=== PATIENT | female | born 1995 | race Caucasian/White ===

== ENCOUNTER 2016-11-04 13:02 | Inpatient (IN) | payer BC, OTHER ==
[2016-11-04] MEDS ORDERED: ceFAZolin 2 GM in SODIUM CHLORIDE 0.9% 100 ML IVPB ONE (15:45)
[2016-11-04] MEDS ORDERED: LACTATED RINGERS 1,000 ML IV ONE (15:45)
[2016-11-04] MEDS ORDERED: CARBOPROST TROMETHAMINE 250 MCG/ML 1 ML AMP IM PRN (15:45)
[2016-11-04] MEDS ORDERED: CITRIC ACID-SODIUM CITRATE 15 ML CUP PO ONE (15:45)
[2016-11-04 16:01] LABS: Basophils % (A) 0 %; CH 32.4; CHCM 33.7; Eosinophils # (A) 0.1 k/uL (0-0.7); Eosinophils % (A) 1 %; HCT 39.8 % (34.0-46.0); HDW 3.29; HGB 12.7 gm/dL (11.4-16.0); Luc % (Auto) 1; Lymphocytes # (A) 1.1 k/uL (1.0-4.8); Lymphocytes % (A) 12 %; MCV 96.9 fL (80.0-100.0); Mean Platelet Volume 9.7; Monocytes # (A) 0.4 k/uL (0-1.0); Monocytes % (A) 4 %; Neutrophils # (A) 7.9 k/uL (1.3-7.7); Neutrophils % (A) 81 %; RBC 4.11 m/uL (3.80-5.40); RDW 13.2 % (11.5-15.5); WBC 9.8 k/uL (3.8-10.6); WBC (Perox) 10.34
[2016-11-04] MEDS ORDERED: diphenhydrAMINE 50 MG/ML 1 ML VIAL ONE (16:29)
[2016-11-04] MEDS ORDERED: OXYTOCIN 10 UNIT/ML 1 ML VIAL IM ONE (16:29)
[2016-11-04] MEDS ORDERED: KETOROLAC 30 MG/ML 1 ML VIAL ONE (16:29)
[2016-11-04] MEDS ORDERED: ONDANSETRON 4 MG/2 ML VIAL ONE (16:29)
[2016-11-04] MEDS ORDERED: NALBUPHINE 10 MG/ML AMPUL ONE (16:29)
[2016-11-04] MEDS ORDERED: DEXAMETHASONE SOD PHOS (MDV) 100 MG/10 ML VIAL ONE (16:29)
[2016-11-04] MEDS ORDERED: MORPHINE SULFATE (PF) 0.3 MG/0.3 ML SYR ONE (16:29)
[2016-11-04] MEDS ORDERED: ONDANSETRON 4 MG/2 ML VIAL IVP PRN (17:03)
[2016-11-04] MEDS ORDERED: MORPHINE SULFATE 4 MG/ML SYRINGE IVP PRN (17:03)
[2016-11-04] MEDS ORDERED: diphenhydrAMINE 50 MG/ML 1 ML VIAL IVP PRN ×2 (17:03→17:21)
[2016-11-04] MEDS ORDERED: NALOXONE 0.4 MG/ML 1 ML VIAL IV PRN (17:03)
[2016-11-04 17:21] VITALS: BMI 85.1
[2016-11-04] MEDS ORDERED: SIMETHICONE 80 MG CHEWABLE PO PRN (17:21)
[2016-11-04] MEDS ORDERED: diphenhydrAMINE 25 MG CAP PO PRN (17:21)
[2016-11-04] MEDS ORDERED: diphenhydrAMINE 50 MG CAP PO PRN (17:21)
[2016-11-04] MEDS ORDERED: LANOLIN CREAM 5 GM TUBE TOPICAL PRN (17:21)
[2016-11-04] MEDS ORDERED: ZOLPIDEM 5 MG TAB PO PRN (17:21)
[2016-11-04] MEDS ORDERED: Acetaminophen-Codeine 300-30mg TAB PO PRN (17:21)
[2016-11-04] MEDS ORDERED: METOCLOPRAMIDE 5 MG/ML 2 ML VIAL IVP PRN (17:21)
[2016-11-04] MEDS ORDERED: ACETAMINOPHEN TAB 325 MG TAB PO PRN (17:21)
[2016-11-04] MEDS ORDERED: INFLUENZA VACCINE (3YR+) 60 MCG/0.5 ML SYRINGE IM ONE (17:24)
[2016-11-04] MEDS ORDERED: DIPH,PERTUS(ACELL)TETVAC-LF 0.5 ML VIAL IM ONE (17:24)
--- NOTE | 2016-11-04 17:33 | P.HPOB ---
History of Present Illness H&P Date: 11/04/16 Chief Complaint: Contractions. This patient is a pleasant 21-year-old 2 para 1 female estimated date of confinement 11/19/2016 estimated gestational age 37-6/7 weeks gestation who is admitted to labor and delivery in active labor. Patient is scheduled for repeat section and tubal ligation. has been uncomplicated with the exception of large for gestational age. Review of Systems Constitutional: Denies chills, Denies fever Ears, nose, mouth and throat: Denies headache, Denies sore throat Cardiovascular: Denies chest pain, Denies shortness of breath Respiratory: Denies cough Gastrointestinal: Reports heartburn Genitourinary: Reports Menstruation: Reports amenorrhea Musculoskeletal: Denies myalgias Integumentary: Denies pruritus, Denies rash Neurological: Denies numbness, Denies weakness Psychiatric: Denies anxiety, Denies depression Endocrine: Denies fatigue, Denies weight change Past Medical History Past Medical History: Asthma History of Any Multi-Drug Resistant Organisms: None Reported Past Surgical History: Section Past Anesthesia/Blood Transfusion Reactions: No Reported Reaction Past Psychological History: No Psychological Hx Reported Smoking Status: Former smoker Past Alcohol Use History: None Reported Additional Past Alcohol Use History / Comment(s): smoked <1year 2 packs/wk quit when found out she was Past Drug Use History: None Reported - Past Family History Mother Family Medical History: No Reported History Medications and Allergies Home Medications Medication Instructions Recorded Confirmed Type Vit No.124/Iron/FA 1 tab PO DAILY 01/28/15 11/04/16 History [ Vitamin Tablet] Beclomethasone Dip 80 Mcg/Puff 2 puff INHALATION DAILY 09/01/16 11/04/16 History [Qvar] Montelukast Sodium [Montelukast 1 tab PO DAILY 09/01/16 11/04/16 History Sodium] Allergies Allergy/AdvReac Type Severity Reaction Status Date / Time No Known Allergies Allergy Verified 11/04/16 13:18 Exam - Vital Signs Vital signs: Intake and Output 11/04/16 11/04/16 11/04/16 06:59 14:59 22:59 Other: Weight 95.708 kg 211 kg Patient Weight 11/05/16 06:59 Weight 211 kg - OBG Physical Exam Abdomen: bowel sounds normal, no diffuse tenderness, no bruit present, no guarding noted, no hepatomegaly, no splenomegaly, no mass Vulva: both: normal Vagina: normal moisture, no discharge Cervix: Cervix is 2 cm dilated. Uterus: enlarged (Fundal height is size greater than dates.) Results blood work shows she is O positive, rubella immune, RPR nonreactive, hepatitis B-, HIV nonreactive, Glucola was normal, group B strep was negative, ultrasounds have been normal with the exception of large for gestational age. Result Diagrams: 11/04/16 15:55 Abnormal Lab Results - Last 24 Hours (Table) 11/04/16 Range/Units 15:55 Neutrophils # 7.9 H (1.3-7.7) k/uL Assessment and Plan (1) Third trimester Narrative/Plan: This is a pleasant 21-year-old 2 para 1 female 37-6/7 weeks' gestation in active labor with previous section and also requesting tubal ligation. Plan is repeat low transverse section and bilateral partial salpingectomy. Patient does understand a tubal ligation is permanent, however there is a failure rate of approximately 20-25 per thousand procedures done. Patient also understands her alternatives to this type of surgery. Patient her stands risks of infection, bleeding, possible injury bowel, bladder, vessels, and other organs. She also understands risk of DVT and pulmonary embolism. All the patient's questions are answered written consent is obtained. Status: Acute (2) Previous delivery affecting Status: Acute (3) Family planning Status: Acute
--- NOTE | 2016-11-04 17:40 | P.OP ---
Date of Procedure: 11/04/16 Preoperative Diagnosis: #1: 37-6/7 week . #2: Previous section desires repeat. #3: Multi parity desires permanent sterilization. #4: Active labor Postoperative Diagnosis: Same Procedure(s) Performed: #1: Repeat low transverse section. #2: Bilateral partial salpingectomy. Implants: Anesthesia: spinal Surgeon: Jonathan Kendrick Contracting Officer #1: Samantha Zepeda Estimated Blood Loss (ml): 800 Pathology: other (Placenta and bilateral fallopian tube segments.) Condition: stable Disposition: floor Indications for Procedure: Please see dictated H&P for intimate details of this patient's admission. Brief summary is a pleasant 21-year-old 2 para 1 female 37-6/7 weeks gestation who is in active labor. Patient has had a previous section and requests repeat. Patient also requests permanent sterilization. Patient and I have discussed the surgery and sterilization in the office previously. She understands a tubal ligation is have a failure rate but in general is considered permanent. She understands risk of surgery including risks of infection, bleeding, possible injury bowel, bladder, vessels, and/or other organs. Operative Findings: This is a vigorous viable male Apgars are 8 and 9 delivery time is 1643 hrs. has spontaneous respirations and good cry and grossly appears normal. Uterus tubes and ovaries appear normal for term gestation. Description of Procedure: This patient has a Caldwell catheter placed to straight drain. She subsequently taken to the operating room where she sat up and spinal anesthetic is administered without incident. With an adequate level of anesthesia she has abdominal prep and drape. Scalpels and taken the previous Pfannenstiel incision is excised. Second scalpel is taken down the fascia and the fascia scored with a knife. Fascial incision extended bilaterally using the Hinson scissors. Fascia is then dissected off the rectus muscles. Rectus muscles are the peritoneum identified and entered sharply. Peritoneal incision extended superior and inferior without difficulty. Bladder blade is then placed. Bladder peritoneum was then taken off the lower uterine segment sharply. Scalpels and taken a low transverse uterine incision is then made. Using a hemostat I into the uterine cavity bluntly and there is loss of clear fluid. This incision extended bluntly. Infant's head is then guided through the incision with fundal pressure delivered. Mouth and nares are bulb suctioned there is no evidence of a nuchal cord. Have delivery anterior posterior shoulder and rest this 's body. The vigorous viable male Apgars 8 and 9 delivery time is 1643 hrs. After delivery of the the umbilical cord is doubly clamped and cut and appears to be trivascular. Placenta is then manually extracted intact. Uterus is then externalized and uterine incision demarcated with Francisco clamps. Uterine incision then closed using 0 Vicryl running locked fashion in 2 layers. The bladder peritoneum was then reapproximated using a 3-0 Vicryl. Excess fluid is removed from the abdomen and pelvis. Then turned my attention a left fallopian tube approximately 4 cm from its cornual insertion a small window is made to the mesial salpinx with Bovie cautery. Using a 2-0 silk I doubly ligate a piece of this tube and approximately 2 cm segment was excised and handed off to pathology. Cauterization is done of the tubal ends. With this completed I then turned my attention of the right fallopian tube similar technique. Pulse tubes appear to be hemostatic. Excess fluid is removed. Uterus placed back into the abdomen. Parietal peritoneum was then closed using 0 Vicryl running fashion. Rectus muscles reapproximated in 0 Vicryl interrupted fashion. Fascia is then closed using 0 PDS in a running fashion. Fascial incision is intact and hemostatic. Subcutaneous tissues and closed using a 3-0 Vicryl. Skin is and closed using george. At this point sterile dressing was then applied. All counts are correct 3. There are no complications. and mother are taken to the birthing suite in satisfactory condition.
[2016-11-04] MEDS: OXYTOCIN 30 UNITS/500 ML NS 30 UNIT in SALINE 1 500ML.BAG IV SCH (19:56)
[2016-11-04] MEDS: LACTATED RINGERS 1,000 ML IV SCH ×3 (19:56→21:16)
[2016-11-04] MEDS: SENNOSIDES-DOCUSATE SODIUM 1 EACH TAB PO SCH (19:57)
[2016-11-04] MEDS: KETOROLAC 30 MG/ML 1 ML VIAL IVP PRN (23:37)
[2016-11-05] MEDS: LACTATED RINGERS 1,000 ML IV SCH (00:28)
[2016-11-05] MEDS: OXYTOCIN 30 UNITS/500 ML NS 30 UNIT in SALINE 1 500ML.BAG IV SCH (00:28)
--- NOTE | 2016-11-05 06:33 | P.PNOBGPC ---
Subjective - Subjective Patient reports: Reports appetite normal, Reports voiding normally, Reports pain well controlled, Reports ambulating normally : doing well Objective - Vital Signs Latest vital signs: Vital Signs Temp Pulse Resp BP Pulse Ox 11/05/16 03:30 98.4 F 79 14 118/54 95 11/04/16 23:30 98.5 F 76 16 122/68 95 11/04/16 19:22 97.0 F L 66 16 101/56 11/04/16 18:42 96.6 F L 67 18 126/65 11/04/16 18:10 82 18 110/54 11/04/16 17:55 96.3 F L 75 18 113/52 11/04/16 17:40 96.4 F L 90 18 113/57 11/04/16 17:25 96.5 F L 76 18 102/53 11/04/16 17:10 97.7 F 87 18 93/51 95 Intake and Output 11/04/16 11/04/16 11/05/16 14:59 22:59 06:59 Intake Total 1000 Output Total 350 1000 Balance 650 -1000 Intake: IV 1000 Lactated Ringers 1,000 ml 1000 @ 125 mls/hr IV .Q8H [facility] Rx#:[id number] Output: Urine 350 1000 Other: Voiding Method Indwelling Catheter Indwelling Catheter Weight 95.708 kg 211 kg Patient Weight 11/05/16 06:59 Weight 211 kg - Exam Lungs: bilateral: normal Chest: Normal S1, Normal S2 Extremities: Present: normal Abdomen: Present: normal appearance, soft. Absent: distention, tenderness Incision: Present: normal, dry, intact Uterus: Present: normal, firm - Labs Labs: Abnormal Lab Results - Last 24 Hours (Table) 11/04/16 Range/Units 15:55 Neutrophils # 7.9 H (1.3-7.7) k/uL Assessment and Plan (1) Third trimester Narrative/Plan: Postoperative day #1. Patient is resting without complaints. Vital signs are stable she is afebrile. Uterus is firm nontender and her incision is intact and dry. Plan today is to remove her catheter, check a CBC, advance her diet, and allow her to shower. We will continue routine postoperative care. Current Visit: Yes Status: Acute Code(s): Z33.1 - STATE, INCIDENTAL SNOMED Code(s): 70063061 (2) Previous delivery affecting Current Visit: Yes Status: Acute Code(s): O34.219 - MATERNAL CARE FOR UNSP TYPE SCAR FROM PREVIOUS DEL SNOMED Code(s): 018980966 (3) Family planning Current Visit: Yes Status: Acute Code(s): Z30.09 - ENCOUNTER FOR OTH GENERAL CNSL AND ADVICE ON CONTRACEPTION SNOMED Code(s): 13504547
[2016-11-05 07:48] LABS: Basophils % (A) 0 %; CH 32.1; CHCM 34.1; Eosinophils % (A) 0 %; HCT 31.6 % (34.0-46.0); HDW 3.12; HGB 10.6 gm/dL (11.4-16.0); Luc # (Auto) 0.19; Luc % (Auto) 2; Lymphocytes # (A) 1.1 k/uL (1.0-4.8); Lymphocytes % (A) 8 %; MCH 31.7 pg (25.0-35.0); MCHC 33.5 g/dL (31.0-37.0); MCV 94.7 fL (80.0-100.0); Monocytes # (A) 0.7 k/uL (0-1.0); Monocytes % (A) 6 %; Neutrophils # (A) 10.6 k/uL (1.3-7.7); Neutrophils % (A) 84 %; RBC 3.34 m/uL (3.80-5.40); RDW 12.9 % (11.5-15.5); WBC 12.5 k/uL (3.8-10.6); WBC (Perox) 14.18
[2016-11-05] MEDS: KETOROLAC 30 MG/ML 1 ML VIAL IVP PRN ×2 (07:48→13:52)
[2016-11-05] MEDS: SENNOSIDES-DOCUSATE SODIUM 1 EACH TAB PO SCH ×2 (07:50→19:49)
--- NOTE | 2016-11-05 08:19 | P.PN ---
Progress Note - Text Postoperative day 1 status post section under spinal anesthesia, and intrathecal morphine given for postoperative analgesia, patient doing well, there is no anesthesia related complications, further management as per her primary team
[2016-11-05] MEDS: Acetaminophen-Codeine 300-30mg TAB PO PRN (19:00)
[2016-11-05] MEDS: IBUPROFEN 600 MG TAB PO PRN (22:33)
[2016-11-06] MEDS: LACTATED RINGERS 1,000 ML IV SCH ×3 (05:11→05:13)
[2016-11-06] MEDS: OXYTOCIN 30 UNITS/500 ML NS 30 UNIT in SALINE 1 500ML.BAG IV SCH ×2 (05:12→05:13)
[2016-11-06] MEDS: Acetaminophen-Codeine 300-30mg TAB PO PRN ×3 (05:31→23:35)
--- NOTE | 2016-11-06 07:10 | P.PNOBGPC ---
Subjective - Subjective Patient reports: Reports appetite normal, Reports voiding normally, Reports pain well controlled, Reports ambulating normally : doing well Objective - Vital Signs Latest vital signs: Vital Signs Temp Pulse Resp BP 11/06/16 00:00 97.8 F 78 16 114/74 11/05/16 20:00 97.4 F L 82 16 117/64 11/05/16 16:00 98.3 F 76 16 108/59 11/05/16 08:30 98.1 F 65 16 113/60 Intake and Output 11/05/16 11/06/16 11/06/16 22:59 06:59 14:59 Output Total 400 Balance -400 Output: Urine 400 Other: # Voids 2 2 - Exam Lungs: bilateral: normal Chest: Normal S1, Normal S2 Extremities: Present: normal Abdomen: Present: normal appearance, soft. Absent: distention, tenderness Incision: Present: normal, dry, intact Uterus: Present: normal, firm - Labs Labs: Abnormal Lab Results - Last 24 Hours (Table) 11/05/16 Range/Units 06:51 WBC 12.5 H (3.8-10.6) k/uL RBC 3.34 L (3.80-5.40) m/uL Hgb 10.6 L (11.4-16.0) gm/dL Hct 31.6 L (34.0-46.0) % Neutrophils # 10.6 H (1.3-7.7) k/uL Assessment and Plan (1) Third trimester Narrative/Plan: Postoperative day #2. Patient is resting without complaints. Vital signs are stable she is afebrile. Uterus is firm nontender she's having normal lochia. Her incision is intact and dry. Yesterday was normal. My impression is this is a normal postoperative course. Plan is to continue routine postoperative care discharge home tomorrow. Current Visit: Yes Status: Acute Code(s): Z33.1 - STATE, INCIDENTAL SNOMED Code(s): 36314753 (2) Previous delivery affecting Current Visit: Yes Status: Acute Code(s): O34.219 - MATERNAL CARE FOR UNSP TYPE SCAR FROM PREVIOUS DEL SNOMED Code(s): 355879578 (3) Family planning Current Visit: Yes Status: Acute Code(s): Z30.09 - ENCOUNTER FOR OTH GENERAL CNSL AND ADVICE ON CONTRACEPTION SNOMED Code(s): 10766326
[2016-11-06] MEDS: SENNOSIDES-DOCUSATE SODIUM 1 EACH TAB PO SCH ×2 (09:15→23:35)
[2016-11-06] MEDS: IBUPROFEN 600 MG TAB PO PRN (11:38)
[2016-11-07] MEDS: IBUPROFEN 600 MG TAB PO PRN (05:24)
--- NOTE | 2016-11-07 07:02 | P.PNOBGPC ---
Subjective - Subjective Patient reports: Reports appetite normal, Reports voiding normally, Reports pain well controlled, Reports ambulating normally : doing well Objective - Vital Signs Latest vital signs: Vital Signs Temp Pulse Resp BP Pulse Ox 11/07/16 00:00 98 F 82 15 114/67 11/06/16 16:00 98.3 F 69 20 111/61 98 11/06/16 08:00 97.2 F L 84 20 129/68 98 - Exam Lungs: bilateral: normal Chest: Normal S1, Normal S2 Extremities: Present: normal Abdomen: Present: normal appearance, soft. Absent: distention, tenderness Incision: Present: normal, dry, intact Uterus: Present: normal, firm Assessment and Plan (1) Third trimester Narrative/Plan: day #3. Patient is resting without complaints. Vital signs are stable and she is afebrile. Uterus is firm nontender and she is having normal lochia. Her incision is intact and dry. My impression is a normal postoperative course. Plan is to continue routine postoperative care discharge home later today. Current Visit: Yes Status: Acute Code(s): Z33.1 - STATE, INCIDENTAL SNOMED Code(s): 18391837 (2) Previous delivery affecting Current Visit: Yes Status: Acute Code(s): O34.219 - MATERNAL CARE FOR UNSP TYPE SCAR FROM PREVIOUS DEL SNOMED Code(s): 595732061 (3) Family planning Current Visit: Yes Status: Acute Code(s): Z30.09 - ENCOUNTER FOR OTH GENERAL CNSL AND ADVICE ON CONTRACEPTION SNOMED Code(s): 73236530
--- NOTE | 2016-11-07 07:06 | P.DS ---
Providers Date of admission: 11/04/16 15:41 Expected date of discharge: 11/07/16 Attending physician: Jonathan Kendrick Primary care physician: Jonathan Kendrick - Discharge Diagnosis(es) (1) Third trimester Current Visit: Yes Status: Acute (2) Previous delivery affecting Current Visit: Yes Status: Acute (3) Family planning Current Visit: Yes Status: Acute Hospital Course: Please see dictated H&P for intimate details of this patient's admission. Brief summary is a pleasant 21-year-old 2 para 1 female approximately 38 weeks gestation who is admitted to labor and delivery in active labor. Patient is a previous section desires repeat and tubal ligation. Patient undergoes above-named surgeries for viable male . Please see dictated delivery note. day 3 patient's felt be stable for discharge home follow up with me in 1 week. Procedures: Repeat low transverse section and bilateral partial salpingectomy. Patient Condition at Discharge: Good Plan - Discharge Summary New Discharge Prescriptions: Acetaminophen-Codeine 300-30mg [Tylenol w/codeine #3] 1 - 2 each PO Q4HR PRN # 40 tab PRN Reason: Mild Pain Ibuprofen [Motrin] 600 mg PO Q6HR PRN #40 tab PRN Reason: Mild Pain Or Fever >= 100.5 Discharge Medication List Vit No.124/Iron/FA [ Vitamin Tablet] 1 tab PO DAILY 01/28/15 [ History] Beclomethasone Dip 80 Mcg/Puff [Qvar] 2 puff INHALATION DAILY 09/01/16 [History] Montelukast Sodium [Montelukast Sodium] 1 tab PO DAILY 09/01/16 [History] Acetaminophen-Codeine 300-30mg [Tylenol w/codeine #3] 1 - 2 each PO Q4HR PRN # 40 tab 11/06/16 [Rx] Ibuprofen [Motrin] 600 mg PO Q6HR PRN #40 tab 11/06/16 [Rx] Follow up Appointment(s)/Referral(s): Jonathan Kendrick MD [Primary Care Provider] - 11/16/16 1:30 pm (Patient also has a visit on December 15 at 10:15 AM.) Patient Instructions/Handouts: (DC) Activity/Diet/Wound Care/Special Instructions: No heavy lifting or strenuous activity for 6 weeks. Please call if any fever, chills, excessive vaginal bleeding, and/or abdominal pain. Discharge Disposition: HOME SELF-CARE
[2016-11-07] MEDS: Acetaminophen-Codeine 300-30mg TAB PO PRN (08:13)
[2016-11-07 08:20] VITALS: BP 108/58; PULSE 70; RESP 16; TEMP 97.8
[2016-11-07] MEDS: SENNOSIDES-DOCUSATE SODIUM 1 EACH TAB PO SCH (11:18)
== END 2016-11-07 11:00 | disposition home or self-care (01) | DRG 766 ==
LOC: FBPOP 13:02 → 4FBP 15:41
PROVIDERS: ADMIT Obstetrics & Gynecology; ATTEND Obstetrics & Gynecology
PROC: 0UB70ZZ Excision of Bilateral Fallopian Tubes, Open Approach (ICD-10-PCS; 2016-11-04)
PROC: 10D00Z1 Extraction of Products of Conception, Low, Open Approach (ICD-10-PCS; principal; 2016-11-04 16:30)
DX: O34.211 Maternal care for low transverse scar from previous cesarean delivery (principal); J45.909 Unspecified asthma, uncomplicated; O36.63X0 Maternal care for excessive fetal growth, third trimester, not applicable or unspecified; O99.52 Diseases of the respiratory system complicating childbirth; Z3A.37 37 weeks gestation of pregnancy; Z37.0 Single live birth; Z87.891 Personal history of nicotine dependence
CPT/HCPCS: 59025; 84112; 85025; 86850; 86900; 86901; 88302; 88307; 90471; 90472; 90686; 90715; 99213

== ENCOUNTER → 2017-05-26 | Outpatient (CLI) | payer BC, OTHER ==
--- NOTE | 2017-05-26 15:14 | US ---
EXAMINATION TYPE: US thyroid st tissue head/neck DATE OF EXAM: 05/26/2017 COMPARISON: NONE CLINICAL HISTORY: E04.9 enlarged thyroid. Possible thyroid enlargement on Dr's examination GLAND SIZE: Right Lobe: 6.1 x 1.9 x 2.3 cm Overall Parenchyma: heterogenous Left Lobe: 5.3 x 1.7 x 1.5 cm Overall Parenchyma: heterogeneous Isthmus Thickness: 0.3 cm Bilateral neck scanned, no evidence of lymphadenopathy. Thyroid enlarged and heterogeneous with no de finite nodules visualized IMPRESSION: Thyroid enlargement without evidence for distinct nodule.
== END | disposition home or self-care (01) ==
LOC: RADUSWWP 14:40
PROVIDERS: ATTEND Pediatrics
DX: E04.9 Nontoxic goiter, unspecified (principal)
CPT/HCPCS: 76536

== ENCOUNTER → 2017-06-21 | Outpatient (CLI) | payer BC, OTHER | LOC: LABWHC1 09:51 | PROVIDERS: ATTEND Internal Medicine Endocrinology, Diabetes & Metabolism | DX: E05.90 Thyrotoxicosis, unspecified without thyrotoxic crisis or storm (principal) | CPT/HCPCS: 36415; 84445; 86376 ==

== ENCOUNTER → 2017-06-28 | Outpatient (CLI) | payer BC, OTHER ==
--- NOTE | 2017-06-28 11:41 | NM ---
EXAMINATION TYPE: NM thyroid image only DATE OF EXAM: 06/28/2017 COMPARISON: Ultrasound 05/26/2017 HISTORY: Subclinical hypothyroid TECHNIQUE: After the intravenous administration of 10.9 mCi Tc 99m Sodium Pertechnetate. FINDINGS: Thyroid uptake appears normal in relation to the salivary gland. No photopenic defects or focal hot n odules are evident. IMPRESSION: 1. Normal thyroid scan.
== END | disposition home or self-care (01) ==
LOC: RADNMMAIN 10:58
PROVIDERS: ATTEND Internal Medicine Endocrinology, Diabetes & Metabolism
DX: E05.90 Thyrotoxicosis, unspecified without thyrotoxic crisis or storm (principal)
CPT/HCPCS: 78013; A9512

== ENCOUNTER 2018-10-12 19:58 | Emergency (ER) | payer BC, OTHER ==
[2018-10-12 20:12] VITALS: BP 138/74; PULSE 88; RESP 18; TEMP 98.3
[2018-10-12] MEDS ORDERED: methylPREDNISolone SOD SUCCI 125 MG/2 ML VIAL IM ONE (20:43)
[2018-10-12] MEDS ORDERED: FAMOTIDINE 20 MG TAB PO STA (20:43)
--- NOTE | 2018-10-12 20:45 | ED ---
Allergic Reaction HPI - General Chief complaint: Allergic Reaction Stated complaint: Allergic reaction Time Seen by Provider: 10/12/18 20:38 Source: patient Mode of arrival: ambulatory Limitations: no limitations - History of Present Illness Initial Comments: 23-year-old female patient presents to the emergency department today complaining of generalized rash. Patient states that this started approximately 2 hours ago. States that it started after she ate a new snack that contained chocolate. She denies any known ALLERGIES, states that she has had these backpacks before but this was a new override the. She denies any throat swelling, lip swelling, tongue swelling, or difficulty breathing. States the rash is itchy. States that she has had some upper respiratory symptoms for the last couple of days including sore throat, slight cough and nasal congestion. She denies any sputum production or shortness of breath with this. Denies any fevers or chills. She denies exposure to any other new substances including indications, soaps, lotions, or detergents. Denies any history of ALLERGIC reaction. Patient denies any recent rash, chest pain, abdominal pain, nausea, vomiting, diarrhea, constipation, back pain, numbness, tingling, dizziness, weakness, hematuria, dysuria, urinary urgency, urinary frequency, headache, visual changes, or any other complaints. She denies any chance of . - Related Data Home Medications Medication Instructions Recorded Confirmed Vit No.124/Iron/Folic 1 tab PO DAILY 01/28/15 11/04/16 [ Vitamin Tablet] Beclomethasone Dip 80 Mcg/Puff 2 puff INHALATION DAILY 09/01/16 11/04/16 [Qvar] Montelukast Sodium 1 tab PO DAILY 09/01/16 11/04/16 Previous Rx's Medication Instructions Recorded Acetaminophen-Codeine 300-30mg 1 - 2 each PO Q4HR PRN #40 tab 11/06/16 [Tylenol w/codeine #3] Ibuprofen [Motrin] 600 mg PO Q6HR PRN #40 tab 11/06/16 Famotidine [Pepcid] 20 mg PO DAILY #3 tablet 10/12/18 predniSONE 50 mg PO DAILY #3 tablet 10/12/18 Allergies Allergy/AdvReac Type Severity Reaction Status Date / Time No Known Allergies Allergy Verified 10/12/18 20:12 Review of Systems ROS Statement: Those systems with pertinent positive or pertinent negative responses have been documented in the HPI. ROS Other: All systems not noted in ROS Statement are negative. Past Medical History Past Medical History: Asthma Additional Past Medical History / Comment(s): Persistent positive vaginal chlamydial culture. History of Any Multi-Drug Resistant Organisms: None Reported Past Surgical History: Section, Tubal Ligation Past Anesthesia/Blood Transfusion Reactions: No Reported Reaction Past Psychological History: No Psychological Hx Reported Smoking Status: Former smoker Past Alcohol Use History: Occasional Past Drug Use History: None Reported - Past Family History Mother Family Medical History: No Reported History General Exam Limitations: no limitations General appearance: alert, in no apparent distress, other (This is a well- developed, well-nourished adult female patient in no acute distress. Vital signs upon presentation are temperature 98.3F, pulse 88, respirations 18, blood pressure 138/74, pulse ox 100% on room air.) Eye exam: Present: normal appearance, PERRL, EOMI. Absent: scleral icterus, conjunctival injection, periorbital swelling ENT exam: Present: normal exam, normal oropharynx, mucous membranes moist Respiratory exam: Present: normal lung sounds bilaterally. Absent: respiratory distress, wheezes, rales, rhonchi, stridor Cardiovascular Exam: Present: regular rate, normal rhythm, normal heart sounds. Absent: systolic murmur, diastolic murmur, rubs, gallop, clicks GI/Abdominal exam: Present: soft, normal bowel sounds. Absent: distended, tenderness, guarding, rebound, rigid Neurological exam: Present: alert, oriented X3, CN II-XII intact Psychiatric exam: Present: normal affect, normal mood Skin exam: Present: warm, dry, intact, normal color, rash (Patient does have urticarial rash noted to her back, arms, and legs. Patient did not petechial and nonvesicular.) Course Vital Signs 10/12/18 20:09 Temperature 98.3 F Pulse Rate 88 Respiratory 18 Rate Blood Pressure 138/74 O2 Sat by Pulse 100 Oximetry Medical Decision Making - Medical Decision Making 23-year-old female patient presented to the emergency department today for complaints of urticarial type rash. Physical examination is consistent with this. Patient was given Pepcid and Solu-Medrol. She did take Claritin prior to arrival. Patient is driving home so she is instructed to take Benadryl when she arrives. She'll be given prescriptions for Pepcid and prednisone. She is instructed to follow up with her primary care physician for recheck in 1-2 days. Return parameters discussed in detail. She verbalizes understanding and agrees with this plan Disposition Clinical Impression: Urticaria Disposition: HOME SELF-CARE Condition: Good Instructions: Urticaria (ED) Additional Instructions: Take medications until complete. Take benadryl over the counter every 6 hours as needed for symptom relief. Follow up with your primary care physician for recheck in 1-2 days. Return immediately for any new, worsening, or concerning symptoms. Prescriptions: Famotidine [Pepcid] 20 mg PO DAILY #3 tablet predniSONE 50 mg PO DAILY #3 tablet Is patient prescribed a controlled substance at d/c from ED?: No Referrals: Matias Russo MD [Primary Care Provider] - 1-2 days Time of Disposition: 20:45
== END 2018-10-12 20:55 | disposition home or self-care (01) ==
LOC: EC 19:58
DX: L50.9 Urticaria, unspecified (principal); J45.909 Unspecified asthma, uncomplicated; Z87.891 Personal history of nicotine dependence; Z79.51 Long term (current) use of inhaled steroids; Z79.899 Other long term (current) drug therapy
CPT/HCPCS: 99282; 96372; J2930

== ENCOUNTER 2019-09-13 19:53 | Emergency (ER) | payer BC, OTHER ==
[2019-09-13 19:59] VITALS: BP 104/63; PULSE 82; RESP 18; TEMP 98
[2019-09-13] MEDS ORDERED: DIPH,PERTUS(ACELL)TETVAC-LF 0.5 ML VIAL IM ONE (20:10)
--- NOTE | 2019-09-13 20:30 | ED ---
Animal Bite HPI - General Chief Complaint: Animal Bite Stated Complaint: Dog bite Time Seen by Provider: 09/13/19 20:03 Source: patient Mode of arrival: ambulatory Limitations: no limitations - History of Present Illness Initial Comments: Patient is a 24-year-old female presenting to emergency department after a dog bite that happened just prior to arrival. Patient states she was entering her Aunt's house and accidentally surprised her dog and the dog ended up biting her on her right lower leg and right hand. The dog is fully vaccinated. There is no active bleeding at this time. The wounds were immediately cleaned with hydrogen peroxide. Patient is unaware of her last tetanus vaccine. There are no other complaints at this time. Patient denies fever, chills. Upon arrival to the ER, vital signs are stable. - Related Data Home Medications Medication Instructions Recorded Confirmed Vit No.124/Iron/Folic 1 tab PO DAILY 01/28/15 11/04/16 [ Vitamin Tablet] Beclomethasone Dip 80 Mcg/Puff 2 puff INHALATION DAILY 09/01/16 11/04/16 [Qvar] Montelukast Sodium 1 tab PO DAILY 09/01/16 11/04/16 Previous Rx's Medication Instructions Recorded Acetaminophen-Codeine 300-30mg 1 - 2 each PO Q4HR PRN #40 tab 11/06/16 [Tylenol w/codeine #3] Ibuprofen [Motrin] 600 mg PO Q6HR PRN #40 tab 11/06/16 Famotidine [Pepcid] 20 mg PO DAILY #3 tablet 10/12/18 predniSONE 50 mg PO DAILY #3 tablet 10/12/18 Amoxicillin/Potassium Clav 1 tab PO BID 3 Days #6 tab 09/13/19 [Augmentin 875-125 Tablet] Allergies Allergy/AdvReac Type Severity Reaction Status Date / Time No Known Allergies Allergy Verified 10/12/18 20:12 Review of Systems ROS Statement: Those systems with pertinent positive or pertinent negative responses have been documented in the HPI. ROS Other: All systems not noted in ROS Statement are negative. Past Medical History Past Medical History: Asthma Additional Past Medical History / Comment(s): Persistent positive vaginal chlamydial culture. History of Any Multi-Drug Resistant Organisms: None Reported Past Surgical History: Section, Tubal Ligation Past Anesthesia/Blood Transfusion Reactions: No Reported Reaction Past Psychological History: No Psychological Hx Reported Smoking Status: Former smoker Past Alcohol Use History: Occasional Past Drug Use History: None Reported - Past Family History Mother Family Medical History: No Reported History General Exam - General Exam Comments Initial Comments: GENERAL: Well-appearing, well-nourished and in no acute distress. HEAD: Atraumatic, normocephalic. EYES: Pupils equal round and reactive to light, extraocular movements intact, sclera anicteric, conjunctiva are normal. ENT: Moist mucous membranes. NECK: Normal range of motion, supple without lymphadenopathy or JVD. LUNGS: Breath sounds clear to auscultation bilaterally and equal. No wheezes rales or rhonchi. HEART: Regular rate and rhythm without murmurs, rubs or gallops. EXTREMITIES: Normal range of motion, no pitting or edema. No clubbing or cyanosis. NEUROLOGICAL: Normal speech, normal gait. PSYCH: Normal mood, normal affect. SKIN: Warm, Dry, normal turgor, no rashes. Patient has a superficial bite wound to the anterior aspect of the right lower leg as well as the dorsal aspect of the right hand. Both are 0.5 cm in length and are not gaping. There is no active bleeding at this time. Limitations: no limitations Course Vital Signs 09/13/19 19:54 Temperature 98.0 F Pulse Rate 82 Respiratory 18 Rate Blood Pressure 104/63 O2 Sat by Pulse 100 Oximetry Medical Decision Making - Medical Decision Making Patient is a 24-year-old female presenting with a dog bite wounds to her right lower leg as well as the right dorsal hand. Both wounds are superficial and 0.5cm in length. The wounds are not gaping. Patient's tetanus vaccine was updated today. The dog is fully vaccinated and is a family member's dog. Patient's wounds were cleaned, Steri-Strips applied as well as antibiotic and bandage. She'll be started on Augmentin for 3 days for prophylactic. Patient is stable for discharge at this time. Return parameters were discussed with the patient and she verbalized understanding. Disposition Clinical Impression: Dog bite of right lower leg, Dog bite of right hand Disposition: HOME SELF-CARE Condition: Stable Instructions (If sedation given, give patient instructions): Animal Bite (ED) Additional Instructions: Please return to the Emergency Department if symptoms worsen or any other concerns. Wounds cleaned and covered. Take antibiotic as prescribed. May use ice to the area for pain relief as well as Motrin. Prescriptions: Amoxicillin/Potassium Clav [Augmentin 875-125 Tablet] 1 tab PO BID 3 Days #6 tab Is patient prescribed a controlled substance at d/c from ED?: No Referrals: None,Stated [Primary Care Provider] - 1-2 days
== END 2019-09-13 20:45 | disposition home or self-care (01) ==
LOC: EC 19:53
DX: Z20.3 Contact with and (suspected) exposure to rabies (principal); S80.871A Other superficial bite, right lower leg, initial encounter; S60.571A Other superficial bite of hand of right hand, initial encounter; Z23 Encounter for immunization; J45.909 Unspecified asthma, uncomplicated; Z79.51 Long term (current) use of inhaled steroids; Z87.891 Personal history of nicotine dependence; W54.0XXA Bitten by dog, initial encounter; Y92.098 Other place in other non-institutional residence as the place of occurrence of the external cause
CPT/HCPCS: 90471; 90715; 99283

== ENCOUNTER 2019-09-20 00:39 | Emergency (ER) | payer BC ==
[2019-09-20 00:46] VITALS: RESP 16
[2019-09-20] MEDS ORDERED: ONDANSETRON ODT 4 MG TAB PO STA (01:47)
[2019-09-20] MEDS ORDERED: ONDANSETRON 4 MG ODT STARTER PACK 2 TAB BTL PO STA (01:47)
--- NOTE | 2019-09-20 01:52 | ED ---
General Adult HPI - General Chief complaint: Nausea/Vomiting/Diarrhea Stated complaint: Abd pain,vomiting Time Seen by Provider: 09/20/19 01:24 Source: patient, RN notes reviewed, old records reviewed Mode of arrival: ambulatory Limitations: no limitations - History of Present Illness Initial comments: 24-year-old female patient presents to ED chief complaint of approximately 5 days of generalized abdominal pain, diarrhea. Patient also reports that she had 2 episodes of emesis today which brought her to the urgency department. Patient declines any focal abdominal pain. Denies any other complaints at this time. Denies any changes being secondary to tubal ligation. Systemic: Pt denies fatigue, fever/chills, rash. Pt denies weakness, night sweats, weight loss. Neuro: Pt denies headache, visual disturbances, syncope or pre-syncope. HEENT: Pt denies ocular discharge or irritation, otalgia, rhinorrhea, pharyngitis or notable lymphadenopathy. Cardiopulmonary: Pt denies chest pain, SOB, heart palpitations, dyspnea on exertion. : Pt denies dysuria, burning w/ urination, frequency/urgency. Denies new onset urinary or bowel incontinence. MSK: Pt denies myalgia, loss of strength or function in extremities. Neuro: Pt denies new onset weakness, paresthesias. - Related Data Home Medications Medication Instructions Recorded Confirmed Vit No.124/Iron/Folic 1 tab PO DAILY 01/28/15 11/04/16 [ Vitamin Tablet] Beclomethasone Dip 80 Mcg/Puff 2 puff INHALATION DAILY 09/01/16 11/04/16 [Qvar] Montelukast Sodium 1 tab PO DAILY 09/01/16 11/04/16 Previous Rx's Medication Instructions Recorded Acetaminophen-Codeine 300-30mg 1 - 2 each PO Q4HR PRN #40 tab 11/06/16 [Tylenol w/codeine #3] Ibuprofen [Motrin] 600 mg PO Q6HR PRN #40 tab 11/06/16 Famotidine [Pepcid] 20 mg PO DAILY #3 tablet 10/12/18 predniSONE 50 mg PO DAILY #3 tablet 10/12/18 Amoxicillin/Potassium Clav 1 tab PO BID 3 Days #6 tab 09/13/19 [Augmentin 875-125 Tablet] Allergies Allergy/AdvReac Type Severity Reaction Status Date / Time No Known Allergies Allergy Verified 10/12/18 20:12 Review of Systems ROS Statement: Those systems with pertinent positive or pertinent negative responses have been documented in the HPI. ROS Other: All systems not noted in ROS Statement are negative. Past Medical History Past Medical History: Asthma Additional Past Medical History / Comment(s): Persistent positive vaginal chlamydial culture. History of Any Multi-Drug Resistant Organisms: None Reported Past Surgical History: Section, Tubal Ligation Past Anesthesia/Blood Transfusion Reactions: No Reported Reaction Past Psychological History: No Psychological Hx Reported Smoking Status: Former smoker Past Alcohol Use History: Occasional Past Drug Use History: None Reported - Past Family History Mother Family Medical History: No Reported History General Exam - General Exam Comments Initial Comments: Constitutional: NAD, AOX3, Pt has pleasant affect. HEENT: NC/AT, trachea midline, neck supple, no lymphadenopathy. Posterior pharynx non erythematous, without exudates. External ears appear normal, without discharge. Mucous membranes moist. Eyes PERRLA, EOM intact. There is no scleral icterus. No pallor noted. Cardiopulmonary: RRR, no murmurs, rubs or gallops, no JVD noted. Lungs CTAB in anterior and posterior rees. No peripheral edema. Abdominal exam: Abdomen soft and non-distended. Abdomen non-tender to palpation in all 4 quadrants. Bowel sounds active in LLQ. No hepatosplenomegaly. No ecchymosis Neuro: CN II-XII grossly intact. No nuchal rigidity. No raccon eyes, no nolan sign, no hemotympanum. No cervical spinal tenderness. MSK: No posterior calf tenderness bilaterally, homans sign negative bilaterally. Posterior tibialis and radial pulse +2 bilaterally. Sensation intact in upper and lower extremities. Full active ROM in upper and lower extremities, 5/5 stregnth. Limitations: no limitations Course Vital Signs 09/20/19 00:42 Temperature 97.9 F Pulse Rate 102 H Respiratory 16 Rate Blood Pressure 109/57 O2 Sat by Pulse 98 Oximetry Medical Decision Making - Medical Decision Making 44-year-old female patient presented to ED chief complaint nausea vomiting diarrhea, generalized abdominal pain. Patient vital signs are stable, afebrile. Physical exam did onset acute pathology. Abdomen nontender to palpation. Offered IV fluids, labs, xray patient declined. Patient likely experiencing a viral gastroenteritis like syndrome. Patient discharged with Zofran and return precautions. Case discussed with Dr. Ragsdale. Disposition Clinical Impression: Nausea vomiting and diarrhea Disposition: HOME SELF-CARE Condition: Stable Instructions (If sedation given, give patient instructions): Acute Nausea and Vomiting (ED), Acute Diarrhea (ED), Gastroenteritis (ED) Additional Instructions: Continue to drink lots of fluids. Follow up with primary care provider tomorrow. Return to ER if condition worsens in any way. Is patient prescribed a controlled substance at d/c from ED?: No Referrals: None,Stated [Primary Care Provider] - 1-2 days
[2019-09-20 01:57] VITALS: PULSE 85
[2019-09-20 02:42] VITALS: BP 126/72; TEMP 98.5
== END 2019-09-20 02:42 | disposition home or self-care (01) ==
LOC: EC 00:39
DX: R11.2 Nausea with vomiting, unspecified (principal); R19.7 Diarrhea, unspecified; R10.84 Generalized abdominal pain; J45.909 Unspecified asthma, uncomplicated; Z53.20 Procedure and treatment not carried out because of patient's decision for unspecified reasons; Z79.51 Long term (current) use of inhaled steroids; Z87.891 Personal history of nicotine dependence; Z98.890 Other specified postprocedural states; Z98.51 Tubal ligation status
CPT/HCPCS: 87502; 99284; S0119

== ENCOUNTER 2023-08-28 19:53 | Inpatient (IN) | payer BC, MEDICAID, OTHER ==
[2023-08-28] MEDS ORDERED: SODIUM CHLORIDE 0.9% 1,000 ML IV STA (20:08)
--- NOTE | 2023-08-28 20:23 | ED ---
General Adult HPI - General Source: patient, RN notes reviewed, old records reviewed Mode of arrival: ambulatory Limitations: no limitations <Sylvain Kuhn - Last Filed: 08/28/23 20:44> <Elise Du - Last Filed: 08/29/23 07:13> - General Chief complaint: Psychiatric Symptoms Stated complaint: Mental Health Time Seen by Provider: 08/28/23 20:07 - History of Present Illness Initial comments: 28-year-old female presents with suicide attempt, depression. Patient had taken approximately 20 trazodone pills at 2 PM as well as approximately 20 paroxetine. She states she vomited several times and this included several pills. Patient took medication a proximally 6 hours prior to arrival. (Sylvain Kuhn) - Related Data Home Medications Medication Instructions Recorded Confirmed Vit No.124/Iron/Folic 1 tab PO DAILY 01/28/15 11/04/16 [ Vitamin Tablet] Beclomethasone Dip 80 Mcg/Puff 2 puff INHALATION DAILY 09/01/16 11/04/16 [Qvar] Montelukast Sodium 1 tab PO DAILY 09/01/16 11/04/16 Previous Rx's Medication Instructions Recorded Acetaminophen-Codeine 300-30mg 1 - 2 each PO Q4HR PRN #40 tab 11/06/16 [Tylenol w/codeine #3] Ibuprofen [Motrin] 600 mg PO Q6HR PRN #40 tab 11/06/16 Famotidine [Pepcid] 20 mg PO DAILY #3 tablet 10/12/18 predniSONE 50 mg PO DAILY #3 tablet 10/12/18 Amoxicillin/Potassium Clav 1 tab PO BID 3 Days #6 tab 09/13/19 [Augmentin 875-125 Tablet] Allergies Allergy/AdvReac Type Severity Reaction Status Date / Time No Known Allergies Allergy Verified 08/28/23 20:06 Review of Systems ROS Other: All systems not noted in ROS Statement are negative. <Sylvain Kuhn - Last Filed: 08/28/23 20:44> ROS Other: All systems not noted in ROS Statement are negative. <Elise Du - Last Filed: 08/29/23 07:13> ROS Statement: Those systems with pertinent positive or pertinent negative responses have been documented in the HPI. Past Medical History Past Medical History: Asthma Additional Past Medical History / Comment(s): Persistent positive vaginal chlamydial culture. History of Any Multi-Drug Resistant Organisms: None Reported Past Surgical History: Section, Tubal Ligation Past Anesthesia/Blood Transfusion Reactions: No Reported Reaction Past Psychological History: No Psychological Hx Reported Past Alcohol Use History: Occasional Past Drug Use History: None Reported - Past Family History Mother Family Medical History: No Reported History <Sylvain Kuhn - Last Filed: 08/28/23 20:44> General Exam Limitations: no limitations General appearance: alert, in no apparent distress Head exam: Present: atraumatic, normocephalic Eye exam: Present: normal appearance, PERRL ENT exam: Present: normal exam Neck exam: Present: normal inspection. Absent: tenderness, meningismus Respiratory exam: Present: normal lung sounds bilaterally. Absent: respiratory distress, wheezes Cardiovascular Exam: Present: regular rate, normal rhythm GI/Abdominal exam: Present: soft. Absent: distended, tenderness, guarding Extremities exam: Present: normal inspection, normal capillary refill Neurological exam: Present: alert, oriented X3. Absent: motor sensory deficit Psychiatric exam: Present: depressed, anxious, suicidal ideation Skin exam: Present: warm, dry, intact. Absent: cyanosis, diaphoretic <Sylvain Kuhn - Last Filed: 08/28/23 20:44> Course Vital Signs 08/28/23 08/28/23 08/28/23 20:02 20:30 22:33 Temperature 97.3 F L Pulse Rate 85 80 88 Respiratory 16 16 Rate Blood Pressure 99/63 104/47 O2 Sat by Pulse 97 97 Oximetry 08/29/23 08/29/23 08/29/23 02:36 04:00 05:32 Temperature Pulse Rate 83 Respiratory 18 16 Rate Blood Pressure 97/46 O2 Sat by Pulse 96 Oximetry 08/29/23 06:35 Temperature Pulse Rate 87 Respiratory 18 Rate Blood Pressure 109/67 O2 Sat by Pulse 97 Oximetry Medical Decision Making <Sylvain Kuhn - Last Filed: 08/28/23 20:44> - Lab Data Result diagrams: 08/28/23 20:34 08/28/23 20:34 <Elise Du - Last Filed: 08/29/23 07:13> - Medical Decision Making Was pt. sent in by a medical professional or institution (ANGIE Zarate, CONSULTING SALES MANAGER, urgent care, hospital, or longterm...) When possible be specific @ -No Did you speak to anyone other than the patient for history (EMS, parent, family, police, friend...)? What history was obtained from this source @ -No Did you review nursing and triage notes (agree or disagree)? Why? @ -I reviewed and agree with nursing and triage notes Were old charts reviewed (outside hosp., previous admission, EMS record, old EKG, old radiological studies, urgent care reports/EKG's, longterm records)? Report findings @ -No old charts were reviewed Differential Diagnosis (chest pain, altered mental status, abdominal pain women, abdominal pain men, vaginal bleeding, weakness, fever, dyspnea, syncope, headache, dizziness, GI bleed, back pain, seizure, CVA, palpatations, mental health, musculoskeletal)? @ Differential Mental Health Suicide attempt, Depression, anxiety, bipolar, psychosis, schizophrenia, borderline personality, situational depression, adjustment disorder, behavioral disorder, brain tumor, malingering, substance abuse, encephalopathy, medication reaction, dementia, hypothyroidism, degenerative neurologic disorder, lupus.... This is not meant to be all-inclusive list EKG interpreted by me (3pts min.). @Sinus rhythm rate of 75, MI interval 147, QRS duration 79, QTC 454 sinus arrhythmia. X-rays interpreted by me (1pt min.). @ -None done CT interpreted by me (1pt min.). @ -None done U/S interpreted by me (1pt. min.). @ -None done What testing was considered but not performed or refused? (CT, X-rays, U/S, labs)? Why? @ -None What meds were considered but not given or refused? Why? @ -None Did you discuss the management of the patient with other professionals (professionals i.e. ANGIE Zarate, CONSULTING SALES MANAGER, lab, RT, psych nurse, social studies teacher, lacquerer, teacher, chief environmental commitment officer, case liner)? Give summary @ Pending discussion with poison control Was smoking cessation discussed for >3mins.? @ -No Was critical care preformed (if so, how long)? @ -No Were there social determinants of health that impacted care today? How? (Homelessness, low income, unemployed, alcoholism, drug addiction, transport ation, low edu. Level, literacy, decrease access to med. care, usp, rehab)? @ -No Was there de-escalation of care discussed even if they declined (Discuss DNR or withdrawal of care, Hospice)? DNR status @ -No What co-morbidities impacted this encounter? (DM, HTN, Smoking, COPD, CAD, Cancer, CVA, ARF, Chemo, Hep., AIDS, mental health diagnosis, sleep apnea, morbid obesity)? @ -None Was patient admitted / discharged? Hospital course, mention meds given and route, prescriptions, significant lab abnormalities, going to OR and other pertinent info. @ -Patient care signed out at shift change to Dr. Du awaiting laboratory testing and medical clearance for EPS. (Sylvain Kuhn) Was patient admitted / discharged? Hospital course, mention meds given and route, prescriptions, significant lab abnormalities, going to OR and other pertinent info. @ -Poison control recommended stabilization of the patient's blood pressure. She did receive a second fluid bolus with improvement in her blood pressure. She was medically cleared and EPS evaluated the patient. She requires hospitalization at this time. She is pending a bed in the morning Undiagnosed new problem with uncertain prognosis? @ -No Drug Therapy requiring intensive monitoring for toxicity (Heparin, Nitro, Insulin, Cardizem)? @ -No Were any procedures done? @ -No Diagnosis/symptom? @ -Acute intentional overdose, acute depression with suicide attempt Acute, or Chronic, or Acute on Chronic? @ -Acute Uncomplicated (without systemic symptoms) or Complicated (systemic symptoms)? @ -Complicated Side effects of treatment? @ -No Exacerbation, Progression, or Severe Exacerbation? @ -No Poses a threat to life or bodily function? How? (Chest pain, [place], [place], pneumonia, PE, COPD, DKA, ARF, appy, cholecystitis, CVA, Diverticulitis, Homicidal, Suicidal, threat to staff... and all critical care pts) @ -Yes, patient actively tried to harm herself (Elise Du) - Lab Data Lab Results 08/28/23 08/28/23 08/28/23 Range/Units 20:34 20:34 20:34 WBC 7.7 (3.8-10.6) k/uL RBC 4.11 (3.80-5.40) m/uL Hgb 13.8 (11.4-16.0) gm/dL Hct 39.6 (34.0-46.0) % MCV 96.4 (80.0-100.0) fL MCH 33.6 (25.0-35.0) pg MCHC 34.8 (31.0-37.0) g/dL RDW 12.5 (11.5-15.5) % Plt Count 215 (150-450) k/uL MPV 8.3 Neutrophils % 72 % Lymphocytes % 14 % Monocytes % 6 % Eosinophils % 6 % Basophils % 0 % Neutrophils # 5.6 (1.3-7.7) k/uL Lymphocytes # 1.1 (1.0-4.8) k/uL Monocytes # 0.5 (0-1.0) k/uL Eosinophils # 0.5 (0-0.7) k/uL Basophils # 0.0 (0-0.2) k/uL PT (10.0-12.5) sec INR (<1.2) Sodium (137-145) mmol/L Potassium (3.5-5.1) mmol/L Chloride (98-107) mmol/L Carbon Dioxide (22-30) mmol/L Anion Gap mmol/L BUN (7-17) mg/dL Creatinine (0.52-1.04) mg/dL Est GFR (CKD-EPI)AfAm (>60 ml/min/1.73 sqM) Est GFR (CKD-EPI)NonAf (>60 ml/min/1.73 sqM) Glucose (74-99) mg/dL Plasma Lactic Acid Sami (0.7-2.0) mmol/L Calcium (8.4-10.2) mg/dL Magnesium (1.6-2.3) mg/dL Total Bilirubin (0.2-1.3) mg/dL AST (14-36) U/L ALT (4-34) U/L Alkaline Phosphatase (38-126) U/L Total Protein (6.3-8.2) g/dL Albumin (3.5-5.0) g/dL Urine Color Urine Appearance (Clear) Urine pH (5.0-8.0) Ur Specific [place] (1.001-1.035) Urine Protein (Negative) Urine Glucose (UA) (Negative) Urine Ketones (Negative) Urine Blood (Negative) Urine Nitrite (Negative) Urine Bilirubin (Negative) Urine Urobilinogen (<2.0) mg/dL Ur Leukocyte Esterase (Negative) Urine HCG, Qual Not Detected (Not Detectd) Salicylates mg/dL Urine Opiates Screen Not Detected (NotDetected) Ur Oxycodone Screen Not Detected (NotDetected) Urine Methadone Screen Not Detected (NotDetected) Ur Propoxyphene Screen Not Detected (NotDetected) Acetaminophen ug/mL Ur Barbiturates Screen Not Detected (NotDetected) U Tricyclic Antidepress Not Detected (NotDetected) Ur Phencyclidine Scrn Not Detected (NotDetected) Ur Amphetamines Screen Detected H (NotDetected) U Methamphetamines Scrn Not Detected (NotDetected) U Benzodiazepines Scrn Not Detected (NotDetected) Urine Cocaine Screen Detected H (NotDetected) U Marijuana (THC) Screen Not Detected (NotDetected) Serum Alcohol mg/dL 08/28/23 08/28/23 08/28/23 Range/Units 20:34 20:34 20:34 WBC (3.8-10.6) k/uL RBC (3.80-5.40) m/uL Hgb (11.4-16.0) gm/dL Hct (34.0-46.0) % MCV (80.0-100.0) fL MCH (25.0-35.0) pg MCHC (31.0-37.0) g/dL RDW (11.5-15.5) % Plt Count (150-450) k/uL MPV Neutrophils % % Lymphocytes % % Monocytes % % Eosinophils % % Basophils % % Neutrophils # (1.3-7.7) k/uL Lymphocytes # (1.0-4.8) k/uL Monocytes # (0-1.0) k/uL Eosinophils # (0-0.7) k/uL Basophils # (0-0.2) k/uL PT 11.4 (10.0-12.5) sec INR 1.1 (<1.2) Sodium 138 (137-145) mmol/L Potassium 4.0 (3.5-5.1) mmol/L Chloride 108 H (98-107) mmol/L Carbon Dioxide 19 L (22-30) mmol/L Anion Gap 11 mmol/L BUN 13 (7-17) mg/dL Creatinine 0.72 (0.52-1.04) mg/dL Est GFR (CKD-EPI)AfAm >90 (>60 ml/min/1.73 sqM) Est GFR (CKD-EPI)NonAf >90 (>60 ml/min/1.73 sqM) Glucose 97 (74-99) mg/dL Plasma Lactic Acid Sami (0.7-2.0) mmol/L Calcium 9.0 (8.4-10.2) mg/dL Magnesium 2.0 (1.6-2.3) mg/dL Total Bilirubin 0.6 (0.2-1.3) mg/dL AST 19 (14-36) U/L ALT 20 (4-34) U/L Alkaline Phosphatase 60 (38-126) U/L Total Protein 7.1 (6.3-8.2) g/dL Albumin 4.3 (3.5-5.0) g/dL Urine Color Colorless Urine Appearance Clear (Clear) Urine pH 5.5 (5.0-8.0) Ur Specific [place] 1.009 (1.001-1.035) Urine Protein Negative (Negative) Urine Glucose (UA) Negative (Negative) Urine Ketones Negative (Negative) Urine Blood Negative (Negative) Urine Nitrite Negative (Negative) Urine Bilirubin Negative (Negative) Urine Urobilinogen <2.0 (<2.0) mg/dL Ur Leukocyte Esterase Negative (Negative) Urine HCG, Qual (Not Detectd) Salicylates <1.0 mg/dL Urine Opiates Screen (NotDetected) Ur Oxycodone Screen (NotDetected) Urine Methadone Screen (NotDetected) Ur Propoxyphene Screen (NotDetected) Acetaminophen <10.0 ug/mL Ur Barbiturates Screen (NotDetected) U Tricyclic Antidepress (NotDetected) Ur Phencyclidine Scrn (NotDetected) Ur Amphetamines Screen (NotDetected) U Methamphetamines Scrn (NotDetected) U Benzodiazepines Scrn (NotDetected) Urine Cocaine Screen (NotDetected) U Marijuana (THC) Screen (NotDetected) Serum Alcohol <10 mg/dL 10/22/23 Range/Units 20:34 WBC (3.8-10.6) k/uL RBC (3.80-5.40) m/uL Hgb (11.4-16.0) gm/dL Hct (34.0-46.0) % MCV (80.0-100.0) fL MCH (25.0-35.0) pg MCHC (31.0-37.0) g/dL RDW (11.5-15.5) % Plt Count (150-450) k/uL MPV Neutrophils % % Lymphocytes % % Monocytes % % Eosinophils % % Basophils % % Neutrophils # (1.3-7.7) k/uL Lymphocytes # (1.0-4.8) k/uL Monocytes # (0-1.0) k/uL Eosinophils # (0-0.7) k/uL Basophils # (0-0.2) k/uL PT (10.0-12.5) sec INR (<1.2) Sodium (137-145) mmol/L Potassium (3.5-5.1) mmol/L Chloride (98-107) mmol/L Carbon Dioxide (22-30) mmol/L Anion Gap mmol/L BUN (7-17) mg/dL Creatinine (0.52-1.04) mg/dL Est GFR (CKD-EPI)AfAm (>60 ml/min/1.73 sqM) Est GFR (CKD-EPI)NonAf (>60 ml/min/1.73 sqM) Glucose (74-99) mg/dL Plasma Lactic Acid Sami 1.0 (0.7-2.0) mmol/L Calcium (8.4-10.2) mg/dL Magnesium (1.6-2.3) mg/dL Total Bilirubin (0.2-1.3) mg/dL AST (14-36) U/L ALT (4-34) U/L Alkaline Phosphatase (38-126) U/L Total Protein (6.3-8.2) g/dL Albumin (3.5-5.0) g/dL Urine Color Urine Appearance (Clear) Urine pH (5.0-8.0) Ur Specific [place] (1.001-1.035) Urine Protein (Negative) Urine Glucose (UA) (Negative) Urine Ketones (Negative) Urine Blood (Negative) Urine Nitrite (Negative) Urine Bilirubin (Negative) Urine Urobilinogen (<2.0) mg/dL Ur Leukocyte Esterase (Negative) Urine HCG, Qual (Not Detectd) Salicylates mg/dL Urine Opiates Screen (NotDetected) Ur Oxycodone Screen (NotDetected) Urine Methadone Screen (NotDetected) Ur Propoxyphene Screen (NotDetected) Acetaminophen ug/mL Ur Barbiturates Screen (NotDetected) U Tricyclic Antidepress (NotDetected) Ur Phencyclidine Scrn (NotDetected) Ur Amphetamines Screen (NotDetected) U Methamphetamines Scrn (NotDetected) U Benzodiazepines Scrn (NotDetected) Urine Cocaine Screen (NotDetected) U Marijuana (THC) Screen (NotDetected) Serum Alcohol mg/dL Disposition <Sylvain Kuhn - Last Filed: 08/28/23 20:44> Is patient prescribed a controlled substance at d/c from ED?: No <Elise Du - Last Filed: 08/29/23 07:13> Clinical Impression: Depression, Suicidal ideation Disposition: TRANSFER TO PSYCH HOSP/UNIT Condition: Stable Referrals: Nonstaff,Physician [REFERRING] - 1-2 days
[2023-08-28 21:01] LABS: Basophils % (A) 0 %; Eosinophils # (A) 0.5 k/uL (0-0.7); Eosinophils % (A) 6 %; HCT 39.6 % (34.0-46.0); HGB 13.8 gm/dL (11.4-16.0); Lymphocytes # (A) 1.1 k/uL (1.0-4.8); Lymphocytes % (A) 14 %; MCH 33.6 pg (25.0-35.0); MCHC 34.8 g/dL (31.0-37.0); MCV 96.4 fL (80.0-100.0); Mean Platelet Volume 8.3; Monocytes # (A) 0.5 k/uL (0-1.0); Monocytes % (A) 6 %; Neutrophils # (A) 5.6 k/uL (1.3-7.7); Neutrophils % (A) 72 %; Platelet Count 215 k/uL (150-450); RBC 4.11 m/uL (3.80-5.40); RDW 12.5 % (11.5-15.5); WBC 7.7 k/uL (3.8-10.6)
[2023-08-28 21:02] LABS: INR 1.1 (<1.2); Prothrombin Time 11.4 sec (10.0-12.5)
[2023-08-28 21:12] LABS: ALT 20 U/L (4-34); AST 19 U/L (14-36); Acetaminophen <10.0 ug/mL; African American GFR (CKD) >90 (>60 ml/min/1.73 sqM); Albumin 4.3 g/dL (3.5-5.0); Alcohol <10 mg/dL; Alkaline Phosphatase 60 U/L (38-126); Anion Gap 11 mmol/L; Blood Urea Nitrogen 13 mg/dL (7-17); Carbon Dioxide 19 mmol/L (22-30); Chloride 108 mmol/L (98-107); Glucose 97 mg/dL (74-99); Non-African American GFR(CKD) >90 (>60 ml/min/1.73 sqM); Salicylate <1.0 mg/dL; Sodium 138 mmol/L (137-145); Total Bilirubin 0.6 mg/dL (0.2-1.3); Total Protein 7.1 g/dL (6.3-8.2)
[2023-08-28] MEDS ORDERED: SODIUM CHLORIDE 0.9% 1,000 ML IV ONE (21:52)
[2023-08-28 23:31] LABS: Appearance,Urine Clear (Clear); Bilirubin,Urine Negative (Negative); Blood,Urine Negative (Negative); Color,Urine Colorless; Glucose,Urine (UA) Negative (Negative); Ketones,Urine Negative (Negative); Leukocyte Esterase,Urine Negative (Negative); Nitrite,Urine Negative (Negative); PH, Urine 5.5 (5.0-8.0); Protein,Urine Negative (Negative); Specific Gravity,Urine 1.009 (1.001-1.035); Urobilinogen,Urine <2.0 mg/dL (<2.0)
[2023-08-28 23:42] LABS: Amphetamine Screen,Urine Detected (NotDetected); Barbiturate Screen,Urine Not Detected (NotDetected); Benzodiazepines Screen,Urine Not Detected (NotDetected); Cocaine Screen,Urine Detected (NotDetected); Methadone Screen, Urine Not Detected (NotDetected); Opiate Screen,Urine Not Detected (NotDetected); Oxycodone Screen, Urine Not Detected (NotDetected); Phencyclidine Screen,Urine Not Detected (NotDetected); Tricyclic Antidepressant,Urine Not Detected (NotDetected); Urn Cannabinoid Scrn Not Detected (NotDetected)
[2023-08-30] MEDS ORDERED: ALBUTEROL HFA INHALER INHALATION PRN (15:32)
[2023-08-30] MEDS ORDERED: HALOPERIDOL LACTATE 5 MG/ML 1 ML VIAL IM PRN (15:36)
[2023-08-30] MEDS ORDERED: MAGNESIUM HYDROXIDE 2,400 MG/30 ML CUP PO PRN (15:36)
[2023-08-30] MEDS ORDERED: haloperidoL 5 MG TAB PO PRN (15:36)
[2023-08-30] MEDS ORDERED: ACETAMINOPHEN TAB 325 MG TAB PO PRN (15:36)
[2023-08-30] MEDS ORDERED: LORazepam 1 MG TAB PO PRN (15:36)
[2023-08-30] MEDS ORDERED: IBUPROFEN 600 MG TAB PO PRN (15:36)
[2023-08-30] MEDS ORDERED: LORazepam 2 MG/ML INJ IM PRN (15:36)
[2023-08-30] MEDS ORDERED: MAG HYDROX/AL HYDROX/SIMETH 30 ML CUP PO PRN (15:36)
[2023-08-30] MEDS: traZODone HCL 100 MG TAB PO SCH (21:17)
[2023-08-30] MEDS: PRAZOSIN 1 MG CAP PO SCH (21:17)
[2023-08-30] MEDS: MONTELUKAST 10 MG TAB PO SCH (21:18)
[2023-08-30] MEDS: LORATADINE 10 MG TAB PO SCH (21:18)
--- NOTE | 2023-08-31 03:28 | P.CONS ---
History of Present Illness - Reason for Consult Consult date: 08/31/23 - History of Present Illness The patient is a 28-year-old female with multiple psychiatric conditions who had presented to the emergency room with complaints of depression and suicidal ideation. The patient was admitted to the mental health unit where she was seen and evaluated. The patient reports that she had recently gotten into a fight with her parents which led to her feeling extremely suicidal. She reports vape use daily. Denied tobacco or alcohol use. She denied any physical complaints at the time of interview. Denied experiencing chest discomfort, shortness of breath, fever, chills, cough, nausea, vomiting, abdominal pain, diarrhea. The patient's urine toxicology however was positive for cocaine. Review of systems: Pertinent positives and negatives as discussed in HPI, a complete review of systems was performed and all other systems are negative. Physical examination: General: non toxic, no distress, appears at stated age, normal weight Derm: no unusual rashes/lesions, no unusual ecchymoses, warm, dry Head: atraumatic, normocephalic, symmetric Eyes: EOMI, no lid lag, anicteric sclera ENT: Nose and ears atraumatic, no thrush, no pharyngeal erythema Neck: trachea midline, supple Mouth: no lip lesion, mucus membranes moist Cardiovascular: S1S2 reg, no murmur, no edema Lungs: CTA bilateral, no rhonchi, no rales , no accessory muscle use Abdominal: soft, nontender to palpation, no guarding Ext: no gross muscle atrophy, no contractures, Neuro: No gross focal neuro deficits noted Psych: Alert, oriented, appropriate affect Assessment: Cocaine abuse Depression and suicidal ideation Imaging: None performed Data Review: Reviewed with chloride 108 and CO2 19 with urine tox positive for amphetamines and cocaine Plan: Strongly advised on importance of cessation of substance use Defer management of depression and suicidal ideation to the primary psychiatry service Thank you for allowing us to participate in the care of this patient. We will follow peripherally. Do not hesitate to contact us with questions. Someone can be reached from the [facility] hospitalist group at all hours of the day at [phone]. Past Medical History Past Medical History: Asthma Additional Past Medical History / Comment(s): Persistent positive vaginal chlamydial culture. History of Any Multi-Drug Resistant Organisms: None Reported Past Surgical History: Section, Tubal Ligation Past Anesthesia/Blood Transfusion Reactions: No Reported Reaction Smoking Status: Former smoker, Vaper - Past Family History Mother Family Medical History: No Reported History Medications and Allergies Home Medications Medication Instructions Recorded Confirmed Type ALPRAZolam [Xanax] 0.25 mg PO Q8H PRN 08/29/23 08/29/23 History Albuterol Sulfate [Albuterol 1 - 2 puff PO RT-Q6H PRN 08/29/23 08/29/23 History Sulfate Hfa] Cariprazine HCl [Vraylar] 3 mg PO HS 08/29/23 08/29/23 History Cetirizine HCl [Zyrtec] 10 mg PO HS 08/29/23 08/29/23 History Dextroamphetamine/Amphetamine 15 mg PO DAILY@1500 08/29/23 08/29/23 History [Adderall Xr 15 mg Capsule] Dextroamphetamine/Amphetamine 25 mg PO DAILY 08/29/23 08/29/23 History [Adderall Xr 25 mg Capsule] Montelukast [Singulair] 10 mg PO HS 08/29/23 08/29/23 History Prazosin HCl [Minipress] 2 mg PO HS 08/29/23 08/29/23 History Vilazodone HCl [Viibryd] 10 mg PO HS 08/29/23 08/29/23 History traZODone HCL [Desyrel] 200 mg PO HS 08/29/23 08/29/23 History Allergies Allergy/AdvReac Type Severity Reaction Status Date / Time No Known Allergies Allergy Verified 08/29/23 08:59 Physical Exam Vitals: Vital Signs Temp Pulse Pulse Resp BP BP Pulse Ox 08/30/23 16:37 97.4 F L 69 16 117/59 97 08/30/23 15:50 98.1 F 76 18 91/52 99 08/30/23 12:00 98.1 F 55 L 18 96/63 95 08/30/23 06:50 97.9 F 79 18 95/61 96 Intake and Output 08/30/23 08/30/23 08/31/23 14:59 22:59 06:59 Other: Weight 85.411 kg Results CBC & Chem 7: 08/28/23 20:34 08/28/23 20:34
[2023-08-31 07:25] VITALS: RESP 14
[2023-08-31] MEDS: NICOTINE 14MG/24HR PATCH TRANSDERM SCH (08:50)
[2023-08-31 11:14] LABS: Chol/HDL Ratio 3.33 Ratio; LDL Cholesterol,Calculated 58.6 mg/dL (0.0-131.0)
[2023-08-31] MEDS ORDERED: hydrOXYzine pamoate 25 MG CAP PO PRN (12:53)
[2023-08-31] MEDS: SERTRALINE 50 MG TAB PO SCH (13:16)
[2023-08-31] MEDS: lamoTRIgine 25 MG TAB PO SCH ×2 (13:16→20:38)
--- NOTE | 2023-08-31 13:18 | P.HP ---
Psychiatric H&P - . H&P Date: 08/31/23 History & Physical: Allergies Allergy/AdvReac Type Severity Reaction Status Date / Time No Known Allergies Allergy Verified 08/29/23 08:59 Vital Signs Temp 97.7 F 08/31/23 07:01 Pulse 67 08/31/23 07:01 Resp 14 08/31/23 07:01 BP 87/41 08/31/23 07:01 Pulse Ox 99 08/31/23 07:01 FiO2 Intake & Output 08/30/23 08/31/23 08/31/23 18:59 06:59 18:59 Weight 85.411 kg Laboratory Last Values WBC 7.7 k/uL (3.8-10.6) 08/28/23 20:34 RBC 4.11 m/uL (3.80-5.40) 08/28/23 20:34 Hgb 13.8 gm/dL (11.4-16.0) 08/28/23 20:34 Hct 39.6 % (34.0-46.0) 08/28/23 20:34 MCV 96.4 fL (80.0-100.0) 08/28/23 20:34 MCH 33.6 pg (25.0-35.0) 08/28/23 20:34 MCHC 34.8 g/dL (31.0-37.0) 08/28/23 20:34 RDW 12.5 % (11.5-15.5) 08/28/23 20:34 Plt Count 215 k/uL (150-450) 08/28/23 20:34 MPV 8.3 08/28/23 20:34 Neutrophils % 72 % 08/28/23 20:34 Lymphocytes % 14 % 08/28/23 20:34 Monocytes % 6 % 08/28/23 20:34 Eosinophils % 6 % 08/28/23 20:34 Basophils % 0 % 08/28/23 20:34 Neutrophils # 5.6 k/uL (1.3-7.7) 08/28/23 20:34 Lymphocytes # 1.1 k/uL (1.0-4.8) 08/28/23 20:34 Monocytes # 0.5 k/uL (0-1.0) 08/28/23 20:34 Eosinophils # 0.5 k/uL (0-0.7) 08/28/23 20:34 Basophils # 0.0 k/uL (0-0.2) 08/28/23 20:34 PT 11.4 sec (10.0-12.5) 08/28/23 20:34 INR 1.1 (<1.2) 08/28/23 20:34 Sodium 138 mmol/L (137-145) 08/28/23 20:34 Potassium 4.0 mmol/L (3.5-5.1) 08/28/23 20:34 Chloride 108 mmol/L (98-107) H 08/28/23 20:34 Carbon Dioxide 19 mmol/L (22-30) L 08/28/23 20:34 Anion Gap 11 mmol/L 08/28/23 20:34 BUN 13 mg/dL (7-17) 08/28/23 20:34 Creatinine 0.72 mg/dL (0.52-1.04) 08/28/23 20:34 Est GFR (CKD-EPI)AfAm >90 (>60 ml/min/1.73 sqM) 08/28/23 20:34 Est GFR (CKD-EPI)NonAf >90 (>60 ml/min/1.73 sqM) 08/28/23 20:34 Glucose 97 mg/dL (74-99) 08/28/23 20:[address] Glu mg/dL 94 mg/dL 08/28/23 20:34 Hemoglobin A1c 4.9 % (<=6.0) 08/28/23 20:34 Plasma Lactic Acid Sami 1.0 mmol/L (0.7-2.0) 08/28/23 20:34 Calcium 9.0 mg/dL (8.4-10.2) 08/28/23 20:34 Magnesium 2.0 mg/dL (1.6-2.3) 08/28/23 20:34 Total Bilirubin 0.6 mg/dL (0.2-1.3) 08/28/23 20:34 AST 19 U/L (14-36) 08/28/23 20:34 ALT 20 U/L (4-34) 08/28/23 20:34 Alkaline Phosphatase 60 U/L (38-126) 08/28/23 20:34 Total Protein 7.1 g/dL (6.3-8.2) 08/28/23: Albumin 4.3 g/dL (3.5-5.0) 08/28/23 20: Triglycerides 344.00 mg/dL (0.00-149.00) H 08/28/23: Cholesterol 182.00 mg/dL (0.00-200.00) 08/28/23: LDL Cholesterol, Calc 58.6 mg/dL (0.0-131.0) 08/28/23: VLDL Cholesterol, Calc 68.80 mg/dL (5.00-40.00) H 08/28/23: HDL Cholesterol 54.60 mg/dL (40.00-60.00) 08/28/23 Cholesterol/HDL Ratio 3.33 Ratio 08/28/23: TSH 0.623 UIU/ML (0.350-5.500) 08/28/23: Urine Color Colorless 08/28/23: Urine Appearance Clear (Clear) 08/28/23: Urine pH 5.5 (5.0-8.0) 08/28/23: Ur Specific [place] 1.009 (1.001-1.035) 08/28/23: Urine Protein Negative (Negative) 08/28/23: Urine Glucose (UA) Negative (Negative) 08/28/23: Urine Ketones Negative (Negative) 08/28/23: Urine Blood Negative (Negative) 08/28/23: Urine Nitrite Negative (Negative) 08/28/23: Urine Bilirubin Negative (Negative) 08/28/23: Urine Urobilinogen <2.0 mg/dL (<2.0) 08/28/23: Ur Leukocyte Esterase Negative (Negative) 08/28/23: Urine HCG, Qual Not Detected (Not Detectd) 08/28/23 Salicylates <1.0 mg/dL 08/28/23: Urine Opiates Screen Not Detected (NotDetected) 08/28/23: Ur Oxycodone Screen Not Detected (NotDetected) 08/28/23: Urine Methadone Screen Not Detected (NotDetected) 10/22/23 20:34 Ur Propoxyphene Screen Not Detected (NotDetected) 08/28/23 20:34 Acetaminophen <10.0 ug/mL 08/28/23 20:34 Ur Barbiturates Screen Not Detected (NotDetected) 08/28/23 20:34 U Tricyclic Antidepress Not Detected (NotDetected) 08/28/23 20:34 Ur Phencyclidine Scrn Not Detected (NotDetected) 08/28/23 20:34 Ur Amphetamines Screen Detected (NotDetected) H 08/28/23 20:34 U Methamphetamines Scrn Not Detected (NotDetected) 08/28/23 20:34 U Benzodiazepines Scrn Not Detected (NotDetected) 08/28/23 20:34 Urine Cocaine Screen Detected (NotDetected) H 08/28/23 20:34 U Marijuana (THC) Screen Not Detected (NotDetected) 08/28/23 20:34 Serum Alcohol <10 mg/dL 08/28/23 20:34 Coronavirus (PCR) Not Detected (Not Detectd) 08/29/23 11:40 08/31/23 13:06 IDENTIFYING DATA: Patient is a 28 yo female who has 2 kids, lives with her parents, 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 HPI: Patient presented to the hospital 2 days ago after a supposed overdose, she admitted to depression and it being a suicide attempt. she claims that she was fighting at home with her parents "hard core" and states that "they're upset because I'm a failure". She states that her parents were upset at her because they were with her kids. The night she was out at the bar and stayed out late. She claims that after she overdosed after the argument she states that she attempted to fall asleep "I didn't know what would happen". She claims that she does not know how much of the pills she took. Claims that her mother following the bottles and asked her about it and then brought her into the hospital. She states that he was an impulsive and also "bad decision". Claims that she is feeling anxious and also depressed. Gives a vague history of manic episodes however has been abusing drugs as well. Patient claims that her sleep and appetite are fair at this time. Patient denies any suicidal or homicidal ideations intent or plan. At this time patient denies any auditory or visual hallucinations. Patient denies any flight of ideas racing thoughts and increased in goal directed behavior. Patient admits to using cocaine however was fairly guarded on how much he uses. She also claims that she uses alcohol mainly on the weekends, denies any withdrawal symptoms or history withdrawals. Claims that she uses nicotine products. PAST PSYCHIATRIC HISTORY: Patient states that she had history of "bipolar disorder" and also states that she has PTSD and ADHD. She is currently on trazodone, minipress, vraylar and viirbid. Patient also uses Xanax and Adderall. Patient denies any previous psychiatric hospitalizations. Patient claims that she has a outpatient therapist however no psychiatrist. Patient denies any history of suicide attempts in the past. Past Medical History: Asthma Additional Past Medical History / Comment(s): Persistent positive vaginal chlamydial culture. History of Any Multi-Drug Resistant Organisms: None Reported Past Surgical History: Section, Tubal Ligation Past Anesthesia/Blood Transfusion Reactions: No Reported Reaction Past Psychological History: No Psychological Hx Reported Past Alcohol Use History: Occasional Past Drug Use History: None Reported ALLERGIES: as per EMR CHEMICAL DEPENDENCY HISTORY: as per HPI FAMILY PSYCHIATRIC/SUBSTANCE USE HISTORY: Claims that her mother has depression and anxiety SOCIAL HISTORY: Patient was born and raised in [place] and now lives in [facility]. She states that she completed high school and some college. She states that she has been in shelter in the past for" unpaid ticket". Denies any history of DUIs. 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 She lives with her parents in a house, she has 2 kids. MENTAL STATUS EXAM: General Appearance: Patient appears to be have short hair, stated age is alert, directable, and attempts to cooperate. Patient appears to have poor hygiene and grooming. Behavior: Patient is seated without any agitated behavior. Vague and evasive. Speech: Patient's speech is fluent and nonpressured. Mood/Affect: Patient reports their mood is depressed and anxious, affect is congruent and constricted. Suicidality/Homicidality: Patient denies having any homicidal ideation intent or plan. [Denies any suicidal ideations intent or plan] Perceptions: Patient denies any visual hallucinations [and denies any auditory hallucinations] Though content/process: [There is no evidence of any delusional thought content and thought process is linear and goal-directed.] Discharge and Minimizing. Memory and concentration: AOX3, grossly intact for the purposes of this session. Can spell "WORLD" backwards Judgment and insight: [poor] STRENGTHS/WEAKNESSES: strength is that patient is [resilient]. Weakness is that patient [has poor judgment and is impulsive] INTELLECT: [average] IMPRESSIONS: Mood disorder unspecified, bipolar disorder versus substance-induced mood disorder. Overdose of medications Cocaine abuse Nicotine dependence Alcohol abuse PLAN: -Patient is admitted under [voluntary] status to MHU for stabilization of psychiatric symptoms and safety. Patient has signed [adult voluntary form and] [medication consent] and is placed in patient's chart. -Medications : Lamictal 25 mg twice a day for mood stabilization/depression, Zoloft 50 mg daily for mood/anxiety. at this time I am concerned about patients history of cocaine abuse along with her being perscribed xanax and adderall. spoke with patient about the risks and issues with this however patient was fairly superficial. Notified pharmacy [facility] about this and to notify her Provider aswell on the concern about this. -Ativan [and Haldol] PRN for agitation/aggression [-Patient was counselled on substance abuse and desired to cut back on use] -Patient was informed of the risks, benefits and side effects of the medication and patient verbally consented to taking the medications. Patient signed med consent form and was placed in chart. -Internal Medicine consult to perform medical evaluation and physical. -NRT - [nicotine patch] -SW on board for discharge planning. Encourage patient to participate in groups to work on coping skills. 08/31/23 13:08
[2023-08-31] MEDS: MONTELUKAST 10 MG TAB PO SCH (20:22)
[2023-08-31] MEDS: PRAZOSIN 1 MG CAP PO SCH (20:22)
[2023-08-31] MEDS: traZODone HCL 100 MG TAB PO SCH (20:22)
[2023-08-31] MEDS: LORATADINE 10 MG TAB PO SCH (20:22)
[2023-09-01] MEDS: NICOTINE 14MG/24HR PATCH TRANSDERM SCH (08:53)
[2023-09-01] MEDS: lamoTRIgine 25 MG TAB PO SCH ×3 (08:53→20:23)
[2023-09-01] MEDS: SERTRALINE 50 MG TAB PO SCH (08:53)
--- NOTE | 2023-09-01 14:03 | P.PN ---
Progress Note - Text Progress Note Date: 09/01/23 Interval history: Patient was seen today for psychiatric follow up. She was fairly concrete and superficial with production underwriter. The patient continues to focus on discharge and minimizing her need for psychiatric help and also to be in the hospital. She was tearful when she found out she was not able to go today. She was fairly concrete, attempts to cooperate today. She states that she is going to some groups. She claims that she was feeling bored today on the unit and has been mainly keeping to herself. She does state that she regrets overdosing on the medications. She is denying any suicidal or homicidal ideations intent or plan. Denying any auditory or visual hallucinations. She is not reporting any side effects at this time and was reminded of the possibility of a rash from the Lamictal. MENTAL STATUS EXAM: General Appearance: Patient appears to be have short hair, stated age is alert, directable, and attempts to cooperate. Patient appears to have improving mildly hygiene and grooming. Behavior: Patient is seated without any agitated behavior. Vague and evasive. superficial. Speech: Patient's speech is fluent and nonpressured. Mood/Affect: Patient reports their mood is "a bit better", affect is congruent and constricted. Suicidality/Homicidality: Patient denies having any homicidal ideation intent or plan. [Denies any suicidal ideations intent or plan] Perceptions: Patient denies any visual hallucinations [and denies any auditory hallucinations] Though content/process: [There is no evidence of any delusional thought content and thought process is linear and goal-directed.] Discharge focused and vague Memory and concentration: AOX3, grossly intact for the purposes of this session Judgment and insight: [poor], superficial IMPRESSIONS: Mood disorder unspecified, bipolar disorder versus substance-induced mood disorder. Overdose of medications Cocaine abuse hx of ptsd Nicotine dependence Alcohol abuse PLAN: -Patient is admitted under [voluntary] status to MHU for stabilization of psychiatric symptoms and safety. Patient has signed [adult voluntary form and] [medication consent] and is placed in patient's chart. -Medications : increase Lamictal 25 mg three times a day for mood stabilization/depression, changed Zoloft 50 mg QHS for mood/anxiety. trazodone 200 mg qhs for insomnia/mood, minipress 2mg qhs for nightmares. -Ativan [and Haldol] PRN for agitation/aggression -NRT - [nicotine patch] -SW on board for discharge planning. Encourage patient to participate in groups to work on coping skills. hopeful for discharge in 2-3 days back home.
[2023-09-01] MEDS: PRAZOSIN 1 MG CAP PO SCH (20:22)
[2023-09-01] MEDS: traZODone HCL 100 MG TAB PO SCH (20:23)
[2023-09-01] MEDS: LORATADINE 10 MG TAB PO SCH (20:23)
[2023-09-01] MEDS: MONTELUKAST 10 MG TAB PO SCH (20:23)
[2023-09-01] MEDS ORDERED: SERTRALINE 50 MG TAB PO SCH (21:00)
[2023-09-02 06:56] VITALS: TEMP 97.7
[2023-09-02] MEDS: lamoTRIgine 25 MG TAB PO SCH ×2 (08:36→20:28)
[2023-09-02] MEDS: NICOTINE 14MG/24HR PATCH TRANSDERM SCH ×2 (08:36→15:27)
--- NOTE | 2023-09-02 10:23 | P.PN ---
Progress Note - Text Progress Note Date: 09/02/23 Interval history: Patient was seen today for psychiatric follow up. She was fairly concrete and superficial with scientific technical writer, continues to minimize her need for being in the hospital and states that she is mainly staying in her room and not getting much out of her time here. states that she misses her kids. continues to minimize the overdose attempt and beleives that she would get more outa therapy. She was fairly concrete, attempts to cooperate today, superficial. She is denying any suicidal or homicidal ideations intent or plan. Denying any auditory or visual hallucinations. She is not reporting any side effects at this time and was reminded of the possibility of a rash from the Lamictal. MENTAL STATUS EXAM: General Appearance: Patient appears to be have short hair, stated age is alert, directable, and attempts to cooperate. Patient appears to have improving mildly hygiene and grooming. Behavior: Patient is seated without any agitated behavior. Vague and evasive. superficial. Speech: Patient's speech is fluent and nonpressured. Mood/Affect: Patient reports their mood is "ok", affect is congruent and constricted. Suicidality/Homicidality: Patient denies having any homicidal ideation intent or plan. [Denies any suicidal ideations intent or plan] Perceptions: Patient denies any visual hallucinations [and denies any auditory hallucinations] Though content/process: [There is no evidence of any delusional thought content and thought process is linear and goal-directed.] Discharge focused and vague Memory and concentration: AOX3, grossly intact for the purposes of this session Judgment and insight: [poor], superficial IMPRESSIONS: Mood disorder unspecified, bipolar disorder versus substance-induced mood disorder. Overdose of medications Cocaine abuse hx of ptsd Nicotine dependence Alcohol abuse PLAN: -Patient is admitted under [voluntary] status to MHU for stabilization of psychiatric symptoms and safety. Patient has signed [adult voluntary form and] [medication consent] and is placed in patient's chart. -Medications : increase Lamictal 50 mg 2 times a day for mood stabilization/depression, she is denying any rash, increase Zoloft 100 mg QHS for mood/anxiety. trazodone 200 mg qhs for insomnia/mood, minipress 2mg qhs for nightmares. -Ativan [and Haldol] PRN for agitation/aggression -NRT - [nicotine patch] -SW on board for discharge planning. Encourage patient to participate in groups to work on coping skills. hopeful for discharge back home tuesday vs tuesday. SW to confirm if any guns or weapons in the house.
[2023-09-02] MEDS: LORATADINE 10 MG TAB PO SCH (20:27)
[2023-09-02] MEDS: PRAZOSIN 1 MG CAP PO SCH (20:28)
[2023-09-02] MEDS: SERTRALINE 100 MG TAB PO SCH (20:28)
[2023-09-02] MEDS: MONTELUKAST 10 MG TAB PO SCH (20:28)
[2023-09-02] MEDS: traZODone HCL 100 MG TAB PO SCH (20:28)
[2023-09-03] MEDS: lamoTRIgine 25 MG TAB PO SCH ×2 (08:15→19:42)
[2023-09-03] MEDS: NICOTINE 14MG/24HR PATCH TRANSDERM SCH (08:15)
--- NOTE | 2023-09-03 17:42 | P.PN ---
Progress Note - Text Progress Note Date: 09/03/23 Interval history: Patient was seen today relaxing in the lounge with her peers watching TV. She r eports good mood, sleep and appetite. She is denying any suicidal or homicidal ideations intent or plan. She also denies any auditory or visual hallucinations. She is compliant with medications and denies medication side effects. Vitals reviewed and her blood pressure this morning was 96/46. She denies feeling lightheaded or dizzy. She reports her blood pressure tends to run low. She was reminded to drink water which she states she has been doing. MENTAL STATUS EXAM: General Appearance: Patient appears to be an overweight adult female with short hair, dressed in casual attire, with adequate hygiene and grooming. Behavior: Patient is calm without any agitated behavior. Speech: Patient's speech is fluent and non-pressured. Mood/Affect: Patient reports their mood is "good", affect is congruent and constricted. Suicidality/Homicidality: Patient denies having any homicidal ideation intent or plan. Denies any suicidal ideation, intent or plan. Perceptions: Patient denies any visual hallucinations and denies any auditory hallucinations. Though content/process: There is no evidence of any delusional thought content and thought process is linear and goal-directed. Memory and concentration: AOX3, grossly intact for the purposes of this session Judgment and insight: fair Assessment/Plan: Continue with current diagnosis. Patient continues to meet criteria for inpatient psychiatric admission for symptom stabilization and safety. Patient will be maintained on same medication regime. Monitor for medication compliance and for any psychotropic medication side effects. Will continue to monitor ongoing response to treatment. Encouraged participation in milieu.
[2023-09-03] MEDS: PRAZOSIN 1 MG CAP PO SCH (19:42)
[2023-09-03] MEDS: SERTRALINE 100 MG TAB PO SCH (19:42)
[2023-09-03] MEDS: MONTELUKAST 10 MG TAB PO SCH (19:42)
[2023-09-03] MEDS: traZODone HCL 100 MG TAB PO SCH (19:42)
[2023-09-03] MEDS: LORATADINE 10 MG TAB PO SCH (19:42)
[2023-09-04] MEDS: lamoTRIgine 25 MG TAB PO SCH ×2 (08:41→20:27)
[2023-09-04] MEDS: NICOTINE 14MG/24HR PATCH TRANSDERM SCH (08:41)
--- NOTE | 2023-09-04 17:43 | P.PN ---
Progress Note - Text Progress Note Date: 09/04/23 Interval history: Patient was seen today relaxing in the lounge with her peer watching TV. She re ports good mood, sleep and appetite. Per sleep record she slept at least 6 hours last night. She is denying any suicidal or homicidal ideation, intent or plan. She also denies any auditory or visual hallucinations. She is compliant with medications and denies medication side effects. Vitals reviewed and her blood pressure is stable. She denies any concerns. MENTAL STATUS EXAM: General Appearance: Patient appears to be an overweight adult female with short hair, dressed in casual attire, with adequate hygiene and grooming. Behavior: Patient is laying on couch in [facility] without any agitated behavior. Speech: Patient's speech is fluent and non-pressured. Mood/Affect: Patient reports their mood is "good", affect is congruent and constricted. Suicidality/Homicidality: Patient denies having any homicidal ideation intent or plan. Denies any suicidal ideation, intent or plan. Perceptions: Patient denies any visual hallucinations and denies any auditory hallucinations. Though content/process: There is no evidence of any delusional thought content and thought process is linear and goal-directed. Memory and concentration: AOX3, grossly intact for the purposes of this session Judgment and insight: fair Assessment/Plan: Continue with current diagnosis. Patient continues to meet criteria for inpatient psychiatric admission for symptom stabilization and safety. Patient will be maintained on same medication regime. Monitor for medication compliance and for any psychotropic medication side effects. Will continue to monitor ongoing response to treatment. Encouraged participation in milieu.
[2023-09-04] MEDS: PRAZOSIN 1 MG CAP PO SCH (20:26)
[2023-09-04] MEDS: LORATADINE 10 MG TAB PO SCH (20:27)
[2023-09-04] MEDS: MONTELUKAST 10 MG TAB PO SCH (20:27)
[2023-09-04] MEDS: traZODone HCL 100 MG TAB PO SCH (20:27)
[2023-09-04] MEDS: SERTRALINE 100 MG TAB PO SCH (20:27)
[2023-09-05] MEDS: NICOTINE 14MG/24HR PATCH TRANSDERM SCH (07:57)
[2023-09-05] MEDS: lamoTRIgine 25 MG TAB PO SCH (07:58)
[2023-09-05 08:21] VITALS: BP 122/56; PULSE 90
--- NOTE | 2023-09-05 11:09 | P.DS ---
Providers Date of admission: 08/30/23 14:43 Expected date of discharge: 09/05/23 Attending physician: Antonio Christianson MD Consults: 08/30/23 15:36 Consult Physician Routine Consulting Provider: Lisa Physician Consult Reason/Comments: H&P and medical Do you want consulting provider notified?: Yes Primary care physician: Dipak Lyons - Discharge Diagnosis(es) (1) Mood disorder Current Visit: Yes Status: Acute Priority: High (2) Overdose of medication Current Visit: Yes Status: Acute Priority: High (3) Cocaine abuse Current Visit: Yes Status: Acute Priority: High (4) History of posttraumatic stress disorder (PTSD) Current Visit: Yes Status: Acute Priority: Medium (5) Nicotine dependence Current Visit: Yes Status: Acute Priority: Low (6) Alcohol abuse Current Visit: Yes Status: Acute Priority: Medium Hospital Course: Admission HPI: Admission note was completed by advertising writer "Patient is a 28 yo female who has 2 kids, lives with her parents, 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 Patient presented to the hospital 2 days ago after a supposed overdose, she admitted to depression and it being a suicide attempt. she claims that she was fighting at home with her parents "hard core" and states that "they're upset because I'm a failure". She states that her parents were upset at her because they were with her kids. The night she was out at the bar and stayed out late. She claims that after she overdosed after the argument she states that she attempted to fall asleep "I didn't know what would happen". She claims that she does not know how much of the pills she took. Claims that her mother following the bottles and asked her about it and then brought her into the hospital. She states that he was an impulsive and also "bad decision". Claims that she is feeling anxious and also depressed. Gives a vague history of manic episodes however has been abusing drugs as well. Patient claims that her sleep and appetite are fair at this time. Patient denies any suicidal or homicidal ideations intent or plan. At this time patient denies any auditory or visual hallucinations. Patient denies any flight of ideas racing thoughts and increased in goal directed behavior. Patient admits to using cocaine however was fairly guarded on how much he uses. She also claims that she uses alcohol mainly on the weekends, denies any withdrawal symptoms or history withdrawals. Claims that she uses nicotine products." Hospital course: Upon admission to the unit patient was directable and agreeable to commence treatment and signed adult voluntary form. Patient got along well with other patients on the unit and followed unit protocol. Patient was compliant with the medications and denied any side effects throughout hospital course. Patient was started on Lamictal and increased to a dose of 100 mg daily for mood stabilization/depression, patient was informed of the possibility of a rash. She is denying that at this time. Zoloft 100 mg daily at bedtime for mood/anxiety, trazodone 200 mg daily at bedtime for insomnia/mood, Minipress 2 mg daily at bedtime for nightmares. Patient spoke of her stressors and engaged in therapy both group and individual. Patient was also seen by medical team for history and physical exam. Throughout the course of the hospitalization patient gradually improved with regards to mood, anxiety, sleep and returned back to their baseline level of functioning. On the day of discharge patient denied any suicidal or homicidal ideations intent or plan denied any auditory or visual hallucinations. Patient endorsed wanting to live for her family and her kids. The patient denied any access to guns or weapons. Patient denied any paranoia and did not endorse any delusions. Patient does have a significant history of substance abuse and was counseled on abstaining from all substances including alcohol and marijuana. Patient was offered however declined inpatient substance- abuse rehab. Patient was also counseled on the medications and need for regular compliance and was encouraged to follow-up with their outpatient appointment for mental health and also for primary care. Prior to discharge a family meeting will be arranged by manager social responsibility to answer any questions and ensure safety upon discharge. Mental status exam: General Appearance: Patient appears to be have short hair, stated age is alert, pleasant, and cooperative. Patient is in no acute distress and has improved hygiene and grooming Behavior: Patient is calmly seated without any agitated behavior. attempts to cooperate. Speech: Patient's speech is fluent and nonpressured. Mood/Affect: Patient reports their mood is "ok", affect is congruent and euthymic. Suicidality/Homicidality: Patient denies having any suicidal or homicidal ideation intent or plan. Perceptions: Patient denies any auditory or visual hallucinations. Though content/process: There is no evidence of any delusional thought content and thought process is linear and goal-directed. more future oriented Memory and concentration: AOX3, grossly intact for the purposes of this session. Can spell "WORLD" backwards correctly. Judgment and insight: chronically poor/impulsive, however has improved with guarded prognosis Impression: Mood disorder unspecified, likely bipolar disorder versus substance-induced mood disorder. Overdose of medication Cocaine abuse History of PTSD Alcohol abuse Nicotine dependence Plan: -Continue with discharge today as patient has improved and stabilized psychiatrically and is not currently an imminent threat to herself and/or others. Patient will remain at chronically elevated risk for harm to self and/or others due to her impulsivity and polysubstance abuse. -Continue medications: Lamictal 100 mg daily by mouth for mood stabilization/depression, patient was advised to continue monitoring for rash and discontinued medication if this does occur and seek urgent medical attention. Zoloft 100 mg daily at bedtime for mood/anxiety, trazodone 200 mg daily at bedtime for insomnia/mood, Minipress 2 mg daily at bedtime for nightmares. -Patient was counseled on the need for medication compliance and appropriate follow-up at mental health and also primary care for medical issues. Patient verbalized understanding and agreed. -Social work to arrange for and conduct family meeting to ensure safety upon discharge and answer any questions/concerns. Social work also to arrange for patients follow up appointments for psychiatric care along with follow up with primary care provider. -Patient counseled on abstaining from recreational drugs and marijuana and alcoh ol. Was informed/educated on the adverse effects on their physical and mental health. Patient verbally agreed and understood. Patient was offered substance abuse treatment however declined at this time. -Patient was instructed to return to the hospital or seek immediate medical care if their psychiatric or medical symptoms do worsen or reoccur. Allergies Allergy/AdvReac Type Severity Reaction Status Date / Time No Known Allergies Allergy Verified 08/29/23 08:59 Laboratory Results WBC 7.7 k/uL (3.8-10.6) 08/28/23 20:34 RBC 4.11 m/uL (3.80-5.40) 08/28/23 20:34 Hgb 13.8 gm/dL (11.4-16.0) 08/28/23 20:34 Hct 39.6 % (34.0-46.0) 08/28/23 20:34 MCV 96.4 fL (80.0-100.0) 08/28/23 20:34 MCH 33.6 pg (25.0-35.0) 08/28/23 20:34 MCHC 34.8 g/dL (31.0-37.0) 08/28/23 20:34 RDW 12.5 % (11.5-15.5) 08/28/23 20:34 Plt Count 215 k/uL (150-450) 08/28/23 20:34 MPV 8.3 08/28/23 20:34 Neutrophils % 72 % 08/28/23 20:34 Lymphocytes % 14 % 08/28/23 20:34 Monocytes % 6 % 08/28/23 20:34 Eosinophils % 6 % 08/28/23 20: Basophils % 0 % 08/28/23 20:34 Neutrophils # 5.6 k/uL (1.3-7.7) 08/28/23 20:34 Lymphocytes # 1.1 k/uL (1.0-4.8) 08/28/23 20:34 Monocytes # 0.5 k/uL (0-1.0) 08/28/23 20:34 Eosinophils # 0.5 k/uL (0-0.7) 08/28/23 20:34 Basophils # 0.0 k/uL (0-0.2) 08/28/23 20:34 PT 11.4 sec (10.0-12.5) 08/28/23 20:34 INR 1.1 (<1.2) 08/28/23 20:34 Sodium 138 mmol/L (137-145) 08/28/23 20:34 Potassium 4.0 mmol/L (3.5-5.1) 08/28/23 20:34 Chloride 108 mmol/L (98-107) H 08/28/23 20:34 Carbon Dioxide 19 mmol/L (22-30) L 08/28/23 20:34 Anion Gap 11 mmol/L 08/28/23 20:34 BUN 13 mg/dL (7-17) 08/28/23 20:34 Creatinine 0.72 mg/dL (0.52-1.04) 08/28/23 20:34 Est GFR (CKD-EPI)AfAm >90 (>60 ml/min/1.73 sqM) 08/28/23 20:34 Est GFR (CKD-EPI)NonAf >90 (>60 ml/min/1.73 sqM) 08/28/23 20: Glucose 97 mg/dL (74-99) 08/28/23 20: Estimated Ave Glu mg/dL 94 mg/dL 08/28/23 20: Hemoglobin A1c 4.9 % (<=6.0) 08/28/23 20: Plasma Lactic Acid Sami 1.0 mmol/L (0.7-2.0) 08/28/23 20: Calcium 9.0 mg/dL (8.4-10.2) 08/28/23: Magnesium 2.0 mg/dL (1.6-2.3) 08/28/23: Total Bilirubin 0.6 mg/dL (0.2-1.3) 08/28/23 20:34 AST 19 U/L (14-36) 08/28/23 20: ALT 20 U/L (4-34) 08/28/23 20: Alkaline Phosphatase 60 U/L (38-126) 08/28/23 20: Total Protein 7.1 g/dL (6.3-8.2) 08/28/23: Albumin 4.3 g/dL (3.5-5.0) 08/28/23 20:34 Triglycerides 344.00 mg/dL (0.00-149.00) H 08/28/23 20: Cholesterol 182.00 mg/dL (0.00-200.00) 08/28/23 20: LDL Cholesterol, Calc 58.6 mg/dL (0.0-131.0) 08/28/23 20: VLDL Cholesterol, Calc 68.80 mg/dL (5.00-40.00) H 08/28/23: HDL Cholesterol 54.60 mg/dL (40.00-60.00) 08/28/23 20: Cholesterol/HDL Ratio 3.33 Ratio 08/28/23: TSH 0.623 UIU/ML (0.350-5.500) 08/28/23 20: Urine Color Colorless 08/28/23: Urine Appearance Clear (Clear) 08/28/23 20:34 Urine pH 5.5 (5.0-8.0) 08/28/23 20:34 Ur Specific Higden 1.009 (1.001-1.035) 08/28/23 20:34 Urine Protein Negative (Negative) 08/28/23 20:34 Urine Glucose (UA) Negative (Negative) 08/28/23 20:34 Urine Ketones Negative (Negative) 08/28/23 20:34 Urine Blood Negative (Negative) 08/28/23 20:34 Urine Nitrite Negative (Negative) 08/28/23 20:34 Urine Bilirubin Negative (Negative) 08/28/23 20:34 Urine Urobilinogen <2.0 mg/dL (<2.0) 08/28/23 20:34 Ur Leukocyte Esterase Negative (Negative) 08/28/23 20:34 Urine HCG, Qual Not Detected (Not Detectd) 08/28/23 20:34 Salicylates <1.0 mg/dL 08/28/23 20:34 Urine Opiates Screen Not Detected (NotDetected) 08/28/23 20:34 Ur Oxycodone Screen Not Detected (NotDetected) 08/28/23 20:34 Urine Methadone Screen Not Detected (NotDetected) 08/28/23 20:34 Ur Propoxyphene Screen Not Detected (NotDetected) 08/28/23 20:34 Acetaminophen <10.0 ug/mL 08/28/23 20:34 Ur Barbiturates Screen Not Detected (NotDetected) 08/28/23 20:34 U Tricyclic Antidepress Not Detected (NotDetected) 08/28/23 20:34 Ur Phencyclidine Scrn Not Detected (NotDetected) 08/28/23 20:34 Ur Amphetamines Screen Detected (NotDetected) H 08/28/23 20:34 U Methamphetamines Scrn Not Detected (NotDetected) 08/28/23 20:34 U Benzodiazepines Scrn Not Detected (NotDetected) 08/28/23 20:34 Urine Cocaine Screen Detected (NotDetected) H 08/28/23 20:34 U Marijuana (THC) Screen Not Detected (NotDetected) 08/28/23 20:34 Serum Alcohol <10 mg/dL 08/28/23 20:34 Coronavirus (PCR) Not Detected (Not Detectd) 08/29/23 11:40 Vital Signs Temp 97.7 F 09/02/23 06:44 Pulse 90 09/05/23 08:04 Resp 14 08/31/23 07:01 BP 122/56 09/05/23 08:04 Pulse Ox 98 09/01/23 08:52 FiO2 Patient Condition at Discharge: Stable Plan - Discharge Summary Discharge Rx Participant: Yes New Discharge Prescriptions: New Nicotine 14Mg/24Hr Patch [Habitrol] 1 patch TRANSDERM DAILY 14 Days #14 patch lamoTRIgine [LaMICtal] 100 mg PO DAILY 14 Days #14 tab Sertraline [Zoloft] 100 mg PO HS 14 Days #14 tab Continue Montelukast [Singulair] 10 mg PO HS Albuterol Sulfate [Albuterol Sulfate Hfa] 1 - 2 puff PO RT-Q6H PRN PRN Reason: Shortness Of Breath Cetirizine HCl [Zyrtec] 10 mg PO HS traZODone HCL [Desyrel] 200 mg PO HS 14 Days #28 tab Prazosin HCl [Minipress] 2 mg PO HS 14 Days #14 cap Discontinued Vilazodone HCl [Viibryd] 10 mg PO HS Dextroamphetamine/Amphetamine [Adderall Xr 15 mg Capsule] 15 mg PO DAILY@1500 ALPRAZolam [Xanax] 0.25 mg PO Q8H PRN PRN Reason: Anxiety Cariprazine HCl [Vraylar] 3 mg PO HS Dextroamphetamine/Amphetamine [Adderall Xr 25 mg Capsule] 25 mg PO DAILY Discharge Medication List Albuterol Sulfate [Albuterol Sulfate Hfa] 1 - 2 puff PO RT-Q6H PRN 08/29/23 [History] Cetirizine HCl [Zyrtec] 10 mg PO HS 08/29/23 [History] Montelukast [Singulair] 10 mg PO HS 08/29/23 [History] Nicotine 14Mg/24Hr Patch [Habitrol] 1 patch TRANSDERM DAILY 14 Days #14 patch 09/05/23 [Rx] Prazosin HCl [Minipress] 2 mg PO HS 14 Days #14 cap 09/05/23 [Rx] Sertraline [Zoloft] 100 mg PO HS 14 Days #14 tab 09/05/23 [Rx] lamoTRIgine [LaMICtal] 100 mg PO DAILY 14 Days #14 tab 09/05/23 [Rx] traZODone HCL [Desyrel] 200 mg PO HS 14 Days #28 tab 09/05/23 [Rx] Follow up Appointment(s)/Referral(s): Messi Moise [Other] - 09/05/23 2:00 pm (Dianna) [facility] [NON-STAFF] - 1 Week Patient Instructions/Handouts: Cocaine Abuse (DC), Mood Disorders (DC), Post Traumatic Stress Disorder (DC), Abuse of Alcohol (DC), Adult Overdose (ED), How to Quit Using Smokeless Tobacco (DC) Activity/Diet/Wound Care/Special Instructions: Avoid the use of street drugs and alcohol. Take all medications as prescribed. When you are in need of refills on your medications, please contact your medical provider and/or outpatient psychiatrist/provider to have this done. Please go to your scheduled outpatient appointment for aftercare treatment. If symptoms return or become worse, call the crisis line at and/or go to the nearest emergency room for evaluation. National Suicide Hotline 080. Discharge Disposition: HOME SELF-CARE
== END 2023-09-05 12:05 | disposition home or self-care (01) | DRG 753 ==
LOC: EC 19:53 → 3MHU 08-30 14:43
PROVIDERS: ADMIT Psychiatry & Neurology Psychiatry; ATTEND Psychiatry & Neurology Psychiatry
DX: F39 Unspecified mood [affective] disorder (principal); F14.10 Cocaine abuse, uncomplicated; F43.10 Post-traumatic stress disorder, unspecified; G47.00 Insomnia, unspecified; R45.851 Suicidal ideations; F17.200 Nicotine dependence, unspecified, uncomplicated; Z79.899 Other long term (current) drug therapy; Z81.8 Family history of other mental and behavioral disorders; Z11.52 Encounter for screening for COVID-19
CPT/HCPCS: 36415; 80053; 80061; 80143; 80179; 80306; 80320; 81003; 81025; 82075; 83036; 83605; 83735; 84443; 85025; 85610; 87635; 93005; 96360; 96361; 99285

== ENCOUNTER 2023-12-07 10:48 | Emergency (ER) | payer OTHER ==
--- NOTE | 2023-12-07 11:07 | ED ---
Upper Extremity HPI - General Stated Complaint: R rotator cuff injury Time Seen by Provider: 12/07/23 11:06 Source: patient, RN notes reviewed - History of Present Illness Initial Comments: Patient is a 28-year-old female presented to the ER with a chief complaint of right arm injury. Patient states she fell on it this weekend. She does reports she felt a pop. Patient received x-rays by her PCP which were negative. Patient is in need of prior authorization for CT and MRI. Patient states that she has been taking tramadol with no relief. Patient denies any other injuries. - Related Data Home Medications Medication Instructions Recorded Confirmed Albuterol Sulfate [Albuterol 1 - 2 puff PO RT-Q6H PRN 08/29/23 08/29/23 Sulfate Hfa] Cetirizine HCl [Zyrtec] 10 mg PO HS 08/29/23 08/29/23 Montelukast [Singulair] 10 mg PO HS 08/29/23 08/29/23 Previous Rx's Medication Instructions Recorded Nicotine 14Mg/24Hr Patch [Habitrol] 1 patch TRANSDERM DAILY 14 Days 09/05/23 #14 patch Prazosin HCl [Minipress] 2 mg PO HS 14 Days #14 cap 09/05/23 Sertraline [Zoloft] 100 mg PO HS 14 Days #14 tab 09/05/23 lamoTRIgine [LaMICtal] 100 mg PO DAILY 14 Days #14 tab 09/05/23 traZODone HCL [Desyrel] 200 mg PO HS 14 Days #28 tab 09/05/23 Allergies Allergy/AdvReac Type Severity Reaction Status Date / Time No Known Allergies Allergy Verified 12/07/23 11:24 Review of Systems ROS Statement: Those systems with pertinent positive or pertinent negative responses have been documented in the HPI. ROS Other: All systems not noted in ROS Statement are negative. Past Medical History Past Medical History: Asthma Additional Past Medical History / Comment(s): Persistent positive vaginal chlamydial culture. History of Any Multi-Drug Resistant Organisms: None Reported Past Surgical History: Section, Tubal Ligation Past Anesthesia/Blood Transfusion Reactions: No Reported Reaction Smoking Status: Former smoker, Vaper - Past Family History Mother Family Medical History: No Reported History General Exam - General Exam Comments Initial Comments: Visual Physical Exam Vital signs reviewed General: Well-appearing, nontoxic, no acute distress. Head: Normocephalic, atraumatic Eyes: PERRLA, EOMI ENT: Airway patent Chest: Nonlabored breathing Skin: No visual rash, normal skin tone Neuro: Alert and oriented 3 Musculoskeletal: No gross abnormalities General appearance: alert, in no apparent distress Head exam: Present: atraumatic, normocephalic, normal inspection Eye exam: Present: normal appearance, PERRL, EOMI. Absent: scleral icterus, conjunctival injection, periorbital swelling Respiratory exam: Present: normal lung sounds bilaterally. Absent: respiratory distress, wheezes, rales, rhonchi, stridor Cardiovascular Exam: Present: regular rate, normal rhythm, normal heart sounds. Absent: systolic murmur, diastolic murmur, rubs, gallop, clicks Extremities exam: Present: other (2+ right radial pulse. sensation intact. limited rom due to pain) Neurological exam: Present: alert, oriented X3, CN II-XII intact Psychiatric exam: Present: normal affect, normal mood Skin exam: Present: warm, dry, intact, normal color. Absent: rash Course Vital Signs 12/07/23 11:20 Temperature 98.4 F Pulse Rate 96 Respiratory 18 Rate Blood Pressure 111/73 O2 Sat by Pulse 96 Oximetry Medical Decision Making - Medical Decision Making I performed the quick note portion of the exam. Electronically signed by Joan Quezada PA-C Was pt. sent in by a medical professional or institution (ANGIE Zarate, UNDERWRITING INTERN, urgent care, hospital, or halfway...) When possible be specific @ -No Did you speak to anyone other than the patient for history (EMS, parent, family, police, friend...)? What history was obtained from this source @ -No Did you review nursing and triage notes (agree or disagree)? Why? @ -I reviewed and agree with nursing and triage notes Were old charts reviewed (outside hosp., previous admission, EMS record, old EKG, old radiological studies, urgent care reports/EKG's, halfway records)? Report findings @ -No old charts were reviewed Differential Diagnosis (chest pain, altered mental status, abdominal pain women, abdominal pain men, vaginal bleeding, weakness, fever, dyspnea, syncope, headache, dizziness, GI bleed, back pain, seizure, CVA, palpatations, mental health, musculoskeletal)? @ -[Differential Musculoskeletal Muscular strain, contusion, ligament sprain, fracture, arthritis, septic arthritis, bursitis, cellulitis, muscle spasm, nerve compression, DVT, arterial occlusion, herpes zoster, electrolyte abnormality, tumor.... This is not meant to be in all inclusive list EKG interpreted by me (3pts min.). @ -None X-rays interpreted by me (1pt min.). @ -None done CT interpreted by me (1pt min.). @ -None done U/S interpreted by me (1pt. min.). @ -None done What testing was considered but not performed or refused? (CT, X-rays, U/S, labs)? Why? @ -[Shoulder x-rays were considered but patient refused. What meds were considered but not given or refused? Why? @ -Analgesics for considered but not given; patient refused. Did you discuss the management of the patient with other professionals (professionals i.e. , PA, UNDERWRITING INTERN, lab, RT, psych nurse, health and social care teacher, wool hat forming machine tender, teacher, chief contract officer, high risk case manager)? Give summary @ -No Was smoking cessation discussed for >3mins.? @ -No Was critical care preformed (if so, how long)? @ -No Were there social determinants of health that impacted care today? How? (Homelessness, low income, unemployed, alcoholism, drug addiction, transportation, low edu. Level, literacy, decrease access to med. care, fci, rehab)? @ -No Was there de-escalation of care discussed even if they declined (Discuss DNR or withdrawal of care, Hospice)? DNR status @ -No What co-morbidities impacted this encounter? (DM, HTN, Smoking, COPD, CAD, Cancer, CVA, ARF, Chemo, Hep., AIDS, mental health diagnosis, sleep apnea, morbid obesity)? @ -None Was patient admitted / discharged? Hospital course, mention meds given and route, prescriptions, significant lab abnormalities, going to OR and other pertinent info. @ -Discharge. Patient is a 28-year-old female presented to ER with chief complaint of right shoulder injury. Vitals stable. Patient neurovascularly intact and no signs of acute distress. X-ray was refused by patient. Patient also refused analgesics. After discussion with patient that we cannot complete MRI in the ER to further evaluate rotator cuff injury patient decided she would like to be discharged. Advised patient to follow-up with orthopedics in the next 1 to 2 days. Referral was given. Return parameters were discussed. Patient be discharged stable condition with follow-up to orthopedics. Patient expressed understanding and agreement with care plan. Undiagnosed new problem with uncertain prognosis? @ -No Drug Therapy requiring intensive monitoring for toxicity (Heparin, Nitro, Insulin, Cardizem)? @ -No Were any procedures done? @ -No Diagnosis/symptom? @ -Right shoulder injury Acute, or Chronic, or Acute on Chronic? @ -Acute Uncomplicated (without systemic symptoms) or Complicated (systemic symptoms)? @ -Uncomplicated Side effects of treatment? @ -No Exacerbation, Progression, or Severe Exacerbation? @ -No Poses a threat to life or bodily function? How? (Chest pain, USA, NC, pneumonia, PE, COPD, DKA, ARF, appy, cholecystitis, CVA, Diverticulitis, Homicidal, Suicidal, threat to staff... and all critical care pts) @ -No Disposition Clinical Impression: Injury of right shoulder and upper arm Disposition: HOME SELF-CARE Condition: Stable Additional Instructions: Please follow-up with orthopedics in the next 1 to 2 days. Please return to the ER for any new or worsening symptoms. Is patient prescribed a controlled substance at d/c from ED?: No Referrals: Nela Caraballo NPC [Primary Care Provider] - 1-2 days Mau Munoz MD [STAFF PHYSICIAN] - 1-2 days Time of Disposition: 11:16
[2023-12-07] MEDS ORDERED: KETOROLAC 15 MG/ML 1 ML VIAL IM STA (11:09)
[2023-12-07 11:27] VITALS: BP 111/73; PULSE 96; RESP 18; TEMP 98.4
== END 2023-12-07 11:26 | disposition home or self-care (01) ==
LOC: EC 10:48
DX: S49.91XA Unspecified injury of right shoulder and upper arm, initial encounter (principal); J45.909 Unspecified asthma, uncomplicated; F17.290 Nicotine dependence, other tobacco product, uncomplicated; Z79.899 Other long term (current) drug therapy; W00.0XXA Fall on same level due to ice and snow, initial encounter
CPT/HCPCS: 99283

== ENCOUNTER → 2023-12-14 | Outpatient (CLI) | payer OTHER ==
--- NOTE | 2023-12-14 11:46 | XR ---
EXAMINATION TYPE: XR shoulder complete RT DATE OF EXAM: 12/14/2023 CLINICAL HISTORY: pain TECHNIQUE: Three views of the right shoulder are obtained. COMPARISON: None FINDINGS: There is no acute fracture/dislocation evident. The acromioclavicular and glenohumeral anna int spaces appear within normal limits. The visualized ribs are intact and unremarkable. IMPRESSION: 1. There is no acute fracture or dislocation. ICD 10 NO FRACTURE, INITIAL EVALUATION
== END | disposition home or self-care (01) ==
LOC: RADXRMAIN 11:27
PROVIDERS: ATTEND Emergency Medicine
DX: S43.401A Unspecified sprain of right shoulder joint, initial encounter (principal); S46.911A Strain of unspecified muscle, fascia and tendon at shoulder and upper arm level, right arm, initial encounter; X58.XXXA Exposure to other specified factors, initial encounter